=== PATIENT | female | born 2000 | race Caucasian/White ===

== ENCOUNTER 2019-10-17 16:44 | Emergency (ER) | payer OTHER, SELFPAY ==
[2019-10-17 17:28] LABS: Influenza Control Valid (Valid)
--- NOTE | 2019-10-17 17:34 | ED.URI ---
HPI - URI/Sore Throat General Chief Complaint: Upper Respiratory Infection Stated Complaint: cough, chest pain Time Seen by Provider: 10/17/19 17:00 Source: patient Mode of arrival: ambulatory Limitations: no limitations History of Present Illness HPI Narrative: Katty is a 19-year-old female patient she presents ambulatory to the emergency room. She states that she has been sick for the past 8-10 days. She has had a runny nose. She has a sore throat. She has a productive cough with yellowish white sputum. She has no history of fever. No abdominal pain. No chest pain. No nausea vomiting. She says she has a lot of sinus drainage. MD elicited complaint: cough, sore throat, rhinorrhea, nasal congestion, sinus pain and other ( Sinus drainage) Pertinent past history: other ( No significant past medical history) Onset (ago): day(s) ( 8 days) Consistency: intermittent Severity: moderate Exacerbating factors: nothing Relieving factors: nothing Context: other ( no recent travel) Associated symptoms: other ( denies fever. Denies chills. Has nasal congestion and rhinorrhea. Has sore throat.) Treatments prior to arrival: cold medicine and other Related Data Allergies Allergy/AdvReac Type Severity Reaction Status Date / Time acetaminophen Allergy Unknown Verified 07/06/19 12:12 Review of Systems Review of Systems: All systems reviewed & are unremarkable except as noted in HPI and below Constitutional: Constitutional: Reports as per HPI, Denies chills and Denies fever(s) Eyes: Eyes: Reports as per HPI and Denies change in vision ENT: Reports system reviewed and no additional complaints, except as documented, Reports as per HPI, Denies vertigo, Reports nasal congestion and Reports sore throat Cardiovascular: Cardiovascular: Reports as per HPI, Denies chest pain and Denies radiating jaw, neck or arm pain Respiratory: Respiratory: Reports as per HPI and Reports cough Comments: See HPI narrative Gastrointestinal: Gastrointestinal: Reports as per HPI, Denies abdominal pain, Denies nausea and Denies vomiting Genitourinary: Genitourinary: Reports as per HPI, Denies hematuria and Denies dysuria Musculoskeletal: Musculoskeletal: Reports no additional musculoskeletal complaints and Denies back pain Integumentary/Breasts: Skin/Breast: Reports system reviewed and no additional complaints, except as docu, Denies erythema and Denies rash Neurologic: Reports system reviewed and no additional complaints, except as documented, Denies vertigo, Denies dizziness, Denies syncope, Denies headache(s), Denies focal weakness and Denies numbness Psychiatric: Psychiatric: Reports no additional psychiatric complaints, Denies anxiety and Denies depression Endocrine: Endocrine: Reports no additional endocrine complaints, Denies polydipsia and Denies polyuria Hematologic/Lymphatic: Hematologic/Lymphatic: Reports no additional hematologic/lymphatic complaints, Denies easy bleeding and Denies easy bruising Allergic/Immunologic: Allergic/Immunologic: Reports no additional allergic/immunologic complaints, Denies lip swelling and Denies tongue swelling PMFSH Past Medical History Medical History (Updated 10/17/19 @ 18:34 by Eriberto Hudson MD) No pertinent past medical history Surgical History Surgical History (Updated 10/17/19 @ 17:41 by Eriberto Hudson MD) No pertinent past surgical history Family History Family History (Updated 10/17/19 @ 17:41 by Eriberto Hudson MD) Mother No problems noted. Father No problems noted. Social History Social History (Updated 10/17/19 @ 17:42 by Eriberto Hudson MD) Smoking status: Never smoker Alcohol intake: never Substance use: never Living arrangements: with family Exam Const: General: no acute distress ( mild distress) and alert Orientation/consciousness: patient oriented x3 Limitations: no limitations HENMT: Ears: TM's normal bilaterally and EAC's
[2019-10-17 17:36] VITALS: BP 131/77; PULSE 108; RESP 16; TEMP 37.2; O2SAT 97
[2019-10-17 18:42] VITALS: RESP 17
== END 2019-10-17 18:43 | disposition home or self-care (01) ==
PROVIDERS: Emergency Provider Surgery; PCP Internal Medicine
DX: J40 Bronchitis, not specified as acute or chronic (principal); J06.9 Acute upper respiratory infection, unspecified
CPT/HCPCS: 87081; 87804; 87880; 99283

== ENCOUNTER 2020-02-27 15:06 | Emergency (ER) | payer SELFPAY ==
[2020-02-27 15:21] VITALS: BP 115/75; PULSE 79; RESP 16; TEMP 36.8; O2SAT 99
--- NOTE | 2020-02-27 15:32 | ED.WOUNDLAC ---
HPI - Wound/Laceration General Chief Complaint: Wound/Laceration Stated Complaint: cut finger Source: patient Mode of arrival: ambulatory Limitations: no limitations History of Present Illness HPI narrative: this is a 20-year-old female that was at work and she was using a food slice her that caused a non gaping well-approximated laceration to her right index finger pad initially there was some bleeding currently no bleeding no numbness or tingling. Onset (ago): hour(s) Extremity Location: Right: hand ( Right index finger laceration) Place: work Context: accidental Associated symptoms: none Treatments prior to arrival: bandage Related Data Home Medications Medication Instructions Recorded Confirmed No Home Medications 02/27/20 02/27/20 Allergies Allergy/AdvReac Type Severity Reaction Status Date / Time acetaminophen Allergy Unknown Verified 07/06/19 12:12 Review of Systems Review of Systems: All systems reviewed & are unremarkable except as noted in HPI and below PMFSH Past Medical History Medical History No pertinent past medical history Surgical History Surgical History No pertinent past surgical history Family History Family History Mother No problems noted. Father No problems noted. Social History Social History Smoking status: Never smoker Alcohol intake: never Substance use: never Exam Const: General: no acute distress and alert Orientation/consciousness: patient oriented x3 HENMT: Head: normal to inspection Eyes: Conjunctivae: conjunctivae normal Pupils: Equal, round and reactive pupils present Neck: Neck: normal visual inspection and no lymphadenopathy Chest: Chest palpation & inspection: normal inspection of the chest Resp: Effort & Inspection: normal respiratory effort Auscultation: clear to auscultation bilaterally GI: GI Palp: Yes Soft to palpation Skin: Wounds: wounds noted ( 1cm laceration on the right index finger) Neuro: General: patient oriented x3, moves all extremities and no meningeal signs Extrem: General: normal to inspection Course Course Emergency Course: form patient that Dermabond would be appropriate for this laceration tolerated procedure well there was no blood loss and the patient was also informed that she needed her tetanus vaccine. Vital Signs Vital signs: Vital Signs Temperature 36.8 C 02/27/20 15:21 Pulse Rate 79 02/27/20 15:21 Respiratory Rate 16 02/27/20 15:21 Blood Pressure 115/75 02/27/20 15:21 Pulse Oximetry 99 02/27/20 15:21 Temperature 36.8 C 02/27/20 15:21 Pulse Rate 79 02/27/20 15:21 Respiratory Rate 16 02/27/20 15:21 Blood Pressure 115/75 02/27/20 15:21 Pulse Oximetry 99 02/27/20 15:21 Critical Care Time Critical Care Time Critical Care Time: No Discharge Plan Discharge Clinical Impression: Laceration Patient Disposition: Home, Self-Care Condition: Stable Instructions: Laceration (ED), Skin Adhesive Care (ED), Antibiotic Form Additional Instructions: Follow-up with primary care physician if symptoms persist or worsen. Prescriptions: No Action No Home Medications RF: 0 Follow-up/Referrals: Rod Arellano MD [Primary Care Provider] - Time of Disposition: 15:36
[2020-02-27] MEDS: TETANUS,DIPHTHERIA,AC PERTUSSIS ADULT 0.5 ML (ADACEL) IM (15:35)
== END 2020-02-27 15:43 | disposition home or self-care (01) ==
PROVIDERS: Emergency Provider Emergency Medicine; PCP Internal Medicine
DX: S61.210A Laceration without foreign body of right index finger without damage to nail, initial encounter (principal); W45.8XXA Other foreign body or object entering through skin, initial encounter
CPT/HCPCS: 12001; 90471; 90715; 99282

== ENCOUNTER 2021-04-23 14:45 | Outpatient (CLI) | payer OTHER, SELFPAY ==
[2021-04-23 18:17] LABS: SARS-CoV-2 RNA PCR Negative (Negative)
== END 2021-04-23 14:46 | disposition home or self-care (01) ==
PROVIDERS: PCP Internal Medicine; Visit Provider Internal Medicine
DX: Z20.822 Contact with and (suspected) exposure to COVID-19 (principal)
CPT/HCPCS: C9803; U0003; U0005

== ENCOUNTER 2021-09-23 10:47 | Emergency (ER) | payer OTHER, SELFPAY ==
[2021-09-23 11:04] VITALS: BP 124/88; PULSE 114; RESP 18; TEMP 36.6; O2SAT 100
--- NOTE | 2021-09-23 11:33 | ED.URI ---
HPI - URI/Sore Throat General Chief Complaint: Upper Respiratory Infection Stated Complaint: weak and dizzy/labored breathing Source: patient and RN notes reviewed Mode of arrival: ambulatory Limitations: no limitations History of Present Illness MD elicited complaint: fever, cough and sore throat Onset (ago): day(s) (3) Consistency: intermittent and progressively worsening Severity: moderate Exacerbating factors: nothing Relieving factors: nothing Associated symptoms: fever, chills, myalgias, headache, nasal congestion, sore throat, cough, nausea, vomiting and diarrhea Treatments prior to arrival: none Related Data Allergies Allergy/AdvReac Type Severity Reaction Status Date / Time acetaminophen Allergy Unknown Unknown Verified 09/23/21 11:11 Review of Systems Review of Systems: All systems reviewed & are unremarkable except as noted in HPI and below Cardiovascular: Cardiovascular: Denies chest pain Respiratory: Respiratory: Denies dyspnea PMFSH Past Medical History Medical History (Updated 09/23/21 @ 12:58 by Sin Darling MD) 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 Father No problems noted. Social History Social History Smoking status: Never smoker Alcohol intake: never Substance use: never Exam Const: General: no acute distress, alert and ill appearing acutely Nutritional Appearance: well nourished Orientation/consciousness: patient oriented x3 Other: female nurse in room during examination. HENMT: Head: normal to inspection Ears: external ears normal Eyes: Conjunctivae: conjunctivae normal Pupils: Equal, round and reactive pupils present EOM: EOMs intact bilaterally Neck: Neck: normal visual inspection Resp: Effort & Inspection: normal respiratory effort Auscultation: clear to auscultation bilaterally Cardio: Rate: regular rate Rhythm: regular rhythm GI: GI Palp: Yes Soft to palpation, No Tenderness to palpation present (GI), No Guarding due to palpation present (GI) and No Rebound tenderness present Auscultation: normal bowel sounds Back/Spine/Pelvis: Cervical Spine: cervical ROM normal Thoracic/Lumbar Spine: thoraco-lumbar ROM normal Skin: General skin exam: normal color Rashes: no rashes Neuro: General: patient oriented x3, moves all extremities, no meningeal signs, no focal motor deficits and CN's II-XI intact bilaterally Speech: normal speech Gait exam (Neuro): Normal gait present Extrem: General: normal to inspection and no clubbing, cyanosis or edema Psych: Appearance: grossly normal and well kempt Mental Status: mental status grossly normal Affect: normal affect Attitude: cooperative Thought content: Yes Normal thought content present Course Vital Signs Vital signs: Vital Signs Temperature 36.6 C 09/23/21 11:04 Pulse Rate 114 H 09/23/21 11:04 Respiratory Rate 18 09/23/21 11:04 Blood Pressure 124/88 09/23/21 11:04 Pulse Oximetry 100 09/23/21 11:04 Temperature 36.6 C 09/23/21 11:04 Pulse Rate 114 H 09/23/21 11:04 Respiratory Rate 18 09/23/21 11:04 Blood Pressure 124/88 09/23/21 11:04 Pulse Oximetry 100 09/23/21 11:04 MDM - URI/Sore Throat Lab Data Attestation: I reviewed the patient's lab results. Labs: Lab Results 09/23/21 Range/Units 11:15 Influenza A (RT-PCR) Negative (Negative) Influenza B (RT-PCR) Negative (Negative) SARS-CoV-2 RNA (RT-PCR) Positive A (Negative) Discharge Plan Discharge Clinical Impression: COVID-19 Patient Disposition: Home, Self-Care Condition: Stable Instructions: COVID-19 (Coronavirus Disease 2019) (ED) Additional Instructions: Use Ty
--- NOTE | 2021-09-23 11:43 | PC.NURSE ---
Assisted Dr. Darling with exam.
[2021-09-23 12:47] LABS: Influenza A QL RT-PCR Negative (Negative); Influenza B QL RT-PCR Negative (Negative); SARS-CoV-2 RNA PCR Positive (Negative)
[2021-09-23] MEDS: KETOROLAC (*BKC) 60 MG/2 ML VIAL IM (12:48)
[2021-09-23] MEDS: ONDANSETRON HCL ODT 4 MG TABLET PO (13:02)
== END 2021-09-23 13:08 | disposition home or self-care (01) ==
PROVIDERS: Emergency Provider Emergency Medicine; PCP Internal Medicine
DX: U07.1 COVID-19 (principal)
CPT/HCPCS: 87502; 96372; 99283; A9270; C9803; J1885; U0003; U0005

== ENCOUNTER 2023-06-30 09:38 | Emergency (ER) | payer OTHER, SELFPAY ==
--- NOTE | ~2023-06-30 | US_ITS ---
EXAMINATION: US OB <=14 wk fetus w TV DATE: 06/30/2023 11:54 INDICATION: Pelvic pain TECHNIQUE: Real-time pelvic ultrasound utilizing both a transvaginal and transabdominal probe was pe rformed. The interpreting radiologist was not present for the study. COMPARISON: None. FINDINGS: The uterus measures 8.3 x 4.0 x 5.6 cm. There is an intrauterine gestational sac with 1 mm yolk sac but without discernible pole. The mean sac diameter measures 6.5 mm, which correlates with an e stimated gestational age of 5 weeks and 3 days. No evident subchorionic hematoma. The right ovary measures 3.6 x 2.3 x 2.2 cm. The left ovary measures 3.6 x 1.5 x 1.5 cm. Vascular iveth w identified on color Doppler in both ovaries. In the right ovary this is seen at the periphery of a 1.8 cm hypoechoic likely corpus luteum cyst. A few tiny anechoic follicles are seen at the left ovary . There is no free fluid in the pelvis. IMPRESSION: 1. Single intrauterine gestational sac with yolk sac but no discernible pole likely due to bev y stage of .. 2. Gestational age by ultrasound based upon mean sac diameter of 5 weeks 3 day(s) +/- 3 day(s) with ultrasound estimated date of delivery (NABEEL) of 02/27/2024. Reviewed, dictated and finalized at location A. IMPRESSION: 1. Single intrauterine gestational sac with yolk sac but no discernible p ole likely due to early stage of .. 2. Gestational age by ultrasound based upon mean sac diameter of 5 weeks 3 day (s) +/- 3 day(s) with ultrasound estimated date of delivery (NABEEL) of 02/27/2024.
[2023-06-30 09:50] VITALS: BP 125/72; PULSE 86; RESP 16; TEMP 36.3; O2SAT 100
[2023-06-30] MEDS: SODIUM CHLORIDE 0.9% IV 1,000 ML 999 ML IV CONT (10:21)
[2023-06-30 10:22] LABS: Appearance Urine Clear (Clear); Bilirubin Urine Negative (Negative); Blood Urine Negative (Negative); Color Urine Yellow (Yellow); Glucose Urine UA Negative (Negative); Ketones Urine Negative (Negative); Leukocyte Esterase Ur Negative LEU/UL (Negative); Nitrate Urine Negative (Negative); Protein Urine Negative (Negative); Specific Grav Ur 1.009 (1.001-1.035); Urobilinogen Urine 0.2 mg/dL (<2.0); pH Urine 7.5 (5.0-9.0)
[2023-06-30 10:29] LABS: Add Urine Microscopic? NO
[2023-06-30 10:34] LABS: Basophils Absolute Auto 0.1 K/mm3 (0.0-0.1); Basophils Percent Auto 0.8 % (0.2-1.2); Eosinophils Absolute Auto 0.1 K/mm3 (0-0.3); Eosinophils Percent Auto 1.5 % (0-4.4); Hematocrit 39.3 % (37.0-47.0); Hemoglobin 13.1 g/dL (12.0-15.0); Immature Granulocyte Absolute 0.02 K/mm3 (0.00-0.031); Immature Granulocyte Percent A 0.3 % (0-0.5); Lymphocytes Absolute Auto 1.19 K/mm3 (0.9-3.2); Lymphocytes Percent Auto 19.9 % (18.3-44.2); Mean Corpuscular HGB Conc 33.3 g/dl (32-36); Mean Corpuscular Hemoglobin 30.9 pg (26-34); Mean Corpuscular Volume 92.7 fl (80-100); Mean Platelet Volume 11.5 fl (7.4-10.4); Monocytes Absolute Auto 0.4 K/mm3 (0.1-0.6); Monocytes Percent Auto 5.8 % (2.6-8.5); Neutrophils Absolute Auto 4.3 K/mm3 (1.3-6.7); Neutrophils Percent Auto 71.7 % (45.5-73.1); Platelet Count Result 168 k/mm3 (150-375); Red Blood Count 4.24 M/mm3 (4.2-5.4); Red Cell Distribution Width 11.8 % (11.5-14.5)
[2023-06-30 10:45] LABS: Alanine Aminotransferase 15 U/L (6-35); Albumin Level 4.2 g/dL (3.5-5.1); Alkaline Phosphatase 64 U/L (38-126); Anion Gap 8 mmol/L (8-16); Aspartate Amino Transferase 24 U/L (14-36); Bilirubin,Total 1.5 mg/dL (0.2-1.3); Blood Urea Nitrogen 11 mg/dL (7-17); Calcium 8.8 mg/dL (8.4-10.2); Carbon Dioxide 25 mmol/L (22-30); Chloride 106 mmol/L (98-107); Estimated CRCL calculation 141 ml/min; Estimated Glomerular Filt Rate > 60; Glucose 83 mg/dL (65-110); Potassium 3.8 mmol/L (3.4-5.0); Sodium 139 mmol/L (137-145)
--- NOTE | 2023-06-30 10:58 | ED.GENADULT ---
HPI - General Adult General Chief complaint: Syncope Stated complaint: syncope Time Seen by Provider: 06/30/23 09:53 History of Present Illness HPI narrative: Patient is a 23-year-old female who presents to the ER with reports of and syncope. She has been feeling more fatigued recently and has had syncope x3. She will get lightheaded when she stands up but improves if she sits down. She reports she is a vegetarian. After missing her menstrual cycle she took 5 test and they were all positive. She has some cramping in her lower abdomen. No adnexal pain. No vaginal bleeding or vaginal discharge. No urinary frequency urgency or dysuria. Related Data Allergies Allergy/AdvReac Type Severity Reaction Status Date / Time acetaminophen Allergy Unknown Unknown Verified 09/23/21 11:11 Review of Systems Review of Systems: All systems reviewed & are unremarkable except as noted in HPI and below Constitutional: Constitutional: Denies chills, Denies fatigue and Denies fever(s) ENT: Denies nasal congestion and Denies sore throat Respiratory: Respiratory: Denies cough, Denies dyspnea and Denies wheezing Gastrointestinal: Gastrointestinal: Denies abdominal pain, Denies nausea and Denies vomiting Genitourinary: Genitourinary: Denies abnormal vaginal bleeding, Denies nocturia, Denies dysuria, Denies pelvic pain and Denies vaginal discharge Neurologic: Reports syncope, Denies headache(s), Denies focal weakness and Denies numbness PMFSH Past Medical History Medical History (Updated 06/30/23 @ 13:09 by Tomas Quinn MD) 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 Father No problems noted. Social History Social History Smoking status: Never smoker Alcohol intake: never Substance use: never Living arrangements: with family Exam Narrative: GENERAL: Well-appearing, well-nourished, and in no acute distress. HEAD: Normocephalic, atraumatic. ENT: Mucous membranes moist. CHEST: Clear to auscultation. No respiratory distress. HEART: Regular rate and rhythm. Normal peripheral pulses. ABDOMEN: Soft, nontender, nondistended. EXTREMITIES: Normal range of motion. No edema. SKIN: Warm, dry, no rash. NEURO: Alert and oriented x3. PSYCH: Normal mood and affect. Course Course Emergency Course: Patient resting comfortably. Informed of imaging and lab results. Patient with early . Recommend follow-up with an OB which she does not have so we will give her the name of the on-call physician. Vital Signs Vital signs: Vital Signs Temperature 97.4 F L 06/30/23 09:50 Pulse Rate 86 06/30/23 09:50 Respiratory Rate 16 06/30/23 09:50 Blood Pressure 125/72 06/30/23 09:50 Pulse Oximetry 100 06/30/23 09:50 Temperature 97.4 F L 06/30/23 09:50 Pulse Rate 86 06/30/23 09:50 Respiratory Rate 16 06/30/23 09:50 Blood Pressure 125/72 06/30/23 09:50 Pulse Oximetry 100 06/30/23 09:50 Medical Decision Making Vital Signs Vital Signs: Vital Signs Temperature 97.4 F L 06/30/23 09:50 Pulse Rate 86 06/30/23 09:50 Respiratory Rate 16 06/30/23 09:50 Blood Pressure 125/72 06/30/23 09:50 Pulse Oximetry 100 06/30/23 09:50 Temperature 97.4 F L 06/30/23 09:50 Pulse Rate 86 06/30/23 09:50 Respiratory Rate 16 06/30/23 09:50 Blood Pressure 125/72 06/30/23 09:50 Pulse Oximetry 100 06/30/23 09:50 Lab Data 06/30/23 10:23 06/30/23 10:23 Labs: Lab Results 06/30/23 06/30/23 Range/Units 10:16 10:23 WBC 6.0 (4.5-10.0) K/mm3 RBC 4.24 (4.2-5.4) M/mm3 Hgb 13.1 (12.0-15.0) g/dL Hc
--- NOTE | 2023-06-30 11:16 | PC.NURSE ---
PT TAKEN TO ULTRASOUND VIA W/C
[2023-06-30 13:21] VITALS: BP 110/63; PULSE 67; RESP 16; O2SAT 100
== END 2023-06-30 13:23 | disposition home or self-care (01) ==
PROVIDERS: Emergency Provider Emergency Medicine; PCP Internal Medicine
DX: O26.891 Other specified pregnancy related conditions, first trimester (principal); O99.891 Other specified diseases and conditions complicating pregnancy; R55 Syncope and collapse; Q79.60 Ehlers-Danlos syndrome, unspecified; Z3A.01 Less than 8 weeks gestation of pregnancy
CPT/HCPCS: 36415; 76801; 76817; 80053; 81003; 81025; 84702; 85025; 96360; 99284; J7030

== ENCOUNTER 2023-08-21 15:55 | Outpatient (CLI) | payer OTHER, SELFPAY ==
[2023-08-21 16:29] LABS: Hematocrit 37.7 % (37.0-47.0); Mean Corpuscular HGB Conc 34.5 g/dl (32-36); Mean Corpuscular Volume 89.8 fl (80-100); Platelet Count Result 166 k/mm3 (150-375); Red Cell Distribution Width 11.9 % (11.5-14.5); White Blood Count 6.1 K/mm3 (4.5-10.0)
[2023-08-21 16:43] LABS: Appearance Urine Cloudy (Clear); Bacteria Urine 1+ /hpf; Bilirubin Urine Negative (Negative); Blood Urine Negative (Negative); Color Urine Yellow (Yellow); Glucose Urine UA Negative (Negative); Ketones Urine Negative (Negative); Leukocyte Esterase Ur Trace LEU/UL (NEGATIVE); Nitrate Urine Negative (Negative); Non Pathogenic Casts 0-2; Protein Urine Negative (Negative); Specific Grav Ur 1.015 (1.001-1.035); Squamous Epithelial Cell Urine Many /hpf (Few); Urobilinogen Urine 0.2 mg/dL (<2.0); pH Urine 6.5 (5.0-9.0)
[2023-08-21 17:15] LABS: Add Urine Microscopic? YES
[2023-08-21 17:15] LABS: HIV 1/2 Ab P24 Ag Result Negative (Negative)
[2023-08-21 17:30] LABS: Hepatitis B Surface Antigen Negative (Negative); Rubella IgG Antibody 35.1 IU/ML
[2023-08-21 17:44] LABS: Hepatitis C Virus Antibody Negative (Negative)
[2023-08-25 14:30] LABS: Rapid Plasma Reagin Non-Reactive (NonReactive)
[2023-08-26 20:15] LABS: Hematocrit 39.3 % (35.0-45.0); Hemoglobin 13.2 g/dL (11.7-15.5); MCH 31.4 pg (27.0-33.0); MCV 93.3 fL (80.0-100.0); RDW 11.9 % (11.0-15.0); Red Blood Cell Count 4.21 Mill/uL (3.80-5.10)
== END 2023-08-21 15:56 | disposition home or self-care (01) ==
LOC: ANHLAB 15:57
PROVIDERS: PCP Nurse Practitioner Family; Visit Provider Obstetrics & Gynecology
DX: Z34.90 Encounter for supervision of normal pregnancy, unspecified, unspecified trimester (principal); Z3A.00 Weeks of gestation of pregnancy not specified
CPT/HCPCS: 36415; 81001; 83021; 84443; 85027; 86592; 86703; 86762; 86787; 86803; 86850; 86900; 86901; 87086; 87088; 87340; G0432

== ENCOUNTER 2023-10-12 13:10 | Outpatient (CLI) | payer OTHER, SELFPAY ==
[2023-10-12 13:25] VITALS: BP 114/72; PULSE 70
[2023-10-12 13:30] VITALS: BP 110/73; PULSE 72
[2023-10-12 13:46] VITALS: BP 106/68; PULSE 75
--- NOTE | 2023-10-12 13:58 | PC.NURSE ---
Dr De La O notified of adm c/o of swelling in R hand, no pitting edema noted in lower legs, reflexes normal, BP's, BROCK and visual issues. Encourage patient to wear compression stockings, encourage Po fluids and address hand swelling and tightness at next office visit. No labs ordered at this time.
[2023-10-12 14:00] VITALS: BP 111/69; PULSE 67
== END 2023-10-12 14:03 | disposition home or self-care (01) ==
LOC: ANHOBOP 13:16 → ANHOBPP 13:19
PROVIDERS: PCP Nurse Practitioner Family; Visit Provider Obstetrics & Gynecology
DX: O13.9 Gestational [pregnancy-induced] hypertension without significant proteinuria, unspecified trimester (principal)
CPT/HCPCS: 99199

== ENCOUNTER 2023-12-02 10:37 | Outpatient (RCR) | payer OTHER, SELFPAY ==
[2023-12-02 12:50] LABS: Glucose 1 Hour PP 50gm Dose 92 mg/dL
[2023-12-02 12:54] LABS: Basophils Percent Auto 0.4 % (0.2-1.2); Eosinophils Absolute Auto 0.1 K/mm3 (0-0.3); Eosinophils Percent Auto 1.5 % (0-4.4); Hematocrit 33.8 % (37.0-47.0); Hemoglobin 11.2 g/dL (12.0-15.0); Immature Granulocyte Absolute 0.07 K/mm3 (0.00-0.031); Immature Granulocyte Percent A 0.8 % (0-0.5); Lymphocytes Absolute Auto 1.71 K/mm3 (0.9-3.2); Lymphocytes Percent Auto 19.2 % (18.3-44.2); Mean Corpuscular HGB Conc 33.1 g/dl (32-36); Mean Corpuscular Hemoglobin 30.8 pg (26-34); Mean Corpuscular Volume 92.9 fl (80-100); Mean Platelet Volume 11.2 fl (7.4-10.4); Monocytes Absolute Auto 0.5 K/mm3 (0.1-0.6); Monocytes Percent Auto 5.9 % (2.6-8.5); Neutrophils Absolute Auto 6.4 K/mm3 (1.3-6.7); Neutrophils Percent Auto 72.2 % (45.5-73.1); Platelet Count Result 165 k/mm3 (150-375); Red Blood Count 3.64 M/mm3 (4.2-5.4); Red Cell Distribution Width 12.5 % (11.5-14.5); White Blood Count 8.9 K/mm3 (4.5-10.0)
--- NOTE | 2023-12-03 14:29 | PC.NURSE ---
Dr. Tan informed of pt's arrival with c/o increased vaginal wetness and possible leaking a couple of times today. ROM plus was negative. Irregular contractions were noted on monitor; no change from what she has been feeling. SVE- internal os is closed. OK to discharge to home.
[2023-12-03] MEDS: RHO(D) IMMUNE GLOBULIN 300 MCG/2 ML SYRINGE IM (17:33)
== END 2024-03-01 23:59 | disposition home or self-care (01) ==
LOC: ANHLAB 10:37
PROVIDERS: PCP Nurse Practitioner Family; Visit Provider Nurse Practitioner Family
DX: Z29.13 Encounter for prophylactic Rho(D) immune globulin (principal); O36.0190 Maternal care for anti-D [Rh] antibodies, unspecified trimester, not applicable or unspecified; Z3A.00 Weeks of gestation of pregnancy not specified
CPT/HCPCS: 36415; 82947; 85025; 85461; 86850; 86900; 86901; 90384; 96372; J2790

== ENCOUNTER 2024-01-22 09:43 | Outpatient (CLI) | payer OTHER, SELFPAY ==
[2024-01-22 10:02] LABS: Hematocrit 34.3 % (37.0-47.0); Hemoglobin 11.3 g/dL (12.0-15.0); Mean Corpuscular HGB Conc 32.9 g/dl (32-36); Mean Corpuscular Hemoglobin 29.8 pg (26-34); Mean Corpuscular Volume 90.5 fl (80-100); Mean Platelet Volume 10.9 fl (7.4-10.4); Platelet Count Result 167 k/mm3 (150-375); Red Blood Count 3.79 M/mm3 (4.2-5.4); Red Cell Distribution Width 13.2 % (11.5-14.5); White Blood Count 9.2 K/mm3 (4.5-10.0)
[2024-01-22 10:57] LABS: HIV 1/2 Ab P24 Ag Result Negative (Negative)
[2024-01-22 11:20] LABS: Rapid Plasma Reagin Non-Reactive (NonReactive)
== END 2024-01-22 09:44 | disposition home or self-care (01) ==
LOC: ANHLAB 09:44
PROVIDERS: PCP Nurse Practitioner Family; Visit Provider Obstetrics & Gynecology
DX: Z34.90 Encounter for supervision of normal pregnancy, unspecified, unspecified trimester (principal)
CPT/HCPCS: 36415; 85027; 86592; 86703; G0432

== ENCOUNTER 2024-01-30 18:28 | Observation (INO) | payer OTHER, SELFPAY ==
[2024-01-30] VITALS (9 sets, daily range): BP systolic 113–126; BP diastolic 72–81; PULSE 77–89; BMI 34.2
--- NOTE | 2024-01-30 20:42 | OBADM ---
This patient, Katty Merlos, admitted to the OB room [facility] for observation. Patient/family oriented to hospital policies and general routines including ID bracelet, bed and alarms, visiting hours, pain management, procedures, bathroom and other care routines, personal items, smoking policy, room service/diet, and visiting hours. Patient/Family are encouraged to report perceived risks to care and to ask questions if they do not understand what they are told or what they should do.
--- NOTE | 2024-02-10 17:25 | PM.OBTRLD ---
OB - Triage/Final Diagnosis Visit Information Comments/Additional reasons for admission: I have assessed the risk for this patient, Katty Merlos, and determined that she would benefit from observation care. Final Diagnosis (1) Cramping complicating , antepartum: Code(s): O26.899 - Other specified related conditions, unspecified trimester; R10.9 - Unspecified abdominal pain Status: Acute
== END 2024-01-30 20:49 | disposition home or self-care (01) ==
PROVIDERS: Admitting Provider Obstetrics & Gynecology; PCP Nurse Practitioner Family; Visit Provider Obstetrics & Gynecology
DX: O26.893 Other specified pregnancy related conditions, third trimester (principal); R10.9 Unspecified abdominal pain; Z3A.36 36 weeks gestation of pregnancy
CPT/HCPCS: G0378; G0379

== ENCOUNTER 2024-02-18 13:44 | Outpatient (RCR) | payer OTHER, SELFPAY ==
--- NOTE | ~2024-02-18 | US_ITS ---
EXAMINATION: US OB limited w BPP DATE: 02/18/2024 15:27 INDICATION: Cholestasis. Third trimester. TECHNIQUE: Real-time pelvic ultrasound was performed. COMPARISON: Ultrasound 06/30/2023 FINDINGS: There is a single living fetus in vertex presentation. The placenta is anterior. heart rate is 124 beats per minute (bpm). The amniotic fluid index is 9.2 cm, which is normal. Biophysical profile performed by the technologist: breathing (30 sec sustained breathing in 30 minutes): 2 out of 2 movement (3 gross body movements in 30 minutes): 2 out of 2 tone (one episode of wookwfe-[id number]-zpeszwx limb movement): 2 out of 2 Amniotic fluid pocket (2 cm): 2 out of 2 Total score: 8 out of 8 IMPRESSION: 1. Single living fetus in vertex presentation. 2. Biophysical profile 8 out of 8. Reviewed, dictated and finalized at location A.
[2024-02-18 14:33] LABS: Alanine Aminotransferase 6 U/L (6-35); Albumin Level 3.8 g/dL (3.5-5.1); Alkaline Phosphatase 158 U/L (38-126); Anion Gap 9 mmol/L (4-12); Aspartate Amino Transferase 14 U/L (14-36); Bilirubin,Total 0.8 mg/dL (0.2-1.3); Blood Urea Nitrogen 7 mg/dL (7-17); Calcium 9.1 mg/dL (8.4-10.2); Carbon Dioxide 18 mmol/L (22-30); Chloride 108 mmol/L (98-107); Estimated Glomerular Filt Rate > 60; Glucose 85 mg/dL (65-110); Sodium 135 mmol/L (137-145)
[2024-02-18 15:39] VITALS: BP 129/68; PULSE 93
[2024-02-25 16:33] LABS: Chenodeoxycholic Acid <0.5 umol/L (< OR = 3.9); Cholic Acid <0.5 umol/L (< OR = 2.8); Deoxycholic Acid <0.5 umol/L (< OR = 2.3); Total Bile Acids <1.5 umol/L (< OR = 8.3)
== END 2024-02-29 08:21 | disposition home or self-care (01) ==
LOC: ANHOBOP 13:44
PROVIDERS: PCP Nurse Practitioner Family; Visit Provider Obstetrics & Gynecology
DX: O26.643 Intrahepatic cholestasis of pregnancy, third trimester (principal); Z3A.38 38 weeks gestation of pregnancy
CPT/HCPCS: 36415; 59025; 76815; 76819; 80053; 82542

== ENCOUNTER 2024-02-24 21:33 | Inpatient (IN) | payer OTHER, SELFPAY ==
[2024-02-24 22:15] VITALS: BMI 34.5
[2024-02-24 22:34] LABS: Basophils Percent Auto 0.3 % (0.2-1.2); Eosinophils Absolute Auto 0.2 K/mm3 (0-0.3); Eosinophils Percent Auto 1.3 % (0-4.4); Hematocrit 34.7 % (37.0-47.0); Hemoglobin 11.6 g/dL (12.0-15.0); Immature Granulocyte Absolute 0.11 K/mm3 (0.00-0.031); Immature Granulocyte Percent A 0.9 % (0-0.5); Lymphocytes Absolute Auto 2.01 K/mm3 (0.9-3.2); Lymphocytes Percent Auto 16.4 % (18.3-44.2); Mean Corpuscular HGB Conc 33.4 g/dl (32-36); Mean Corpuscular Hemoglobin 28.6 pg (26-34); Mean Corpuscular Volume 85.7 fl (80-100); Mean Platelet Volume 11.4 fl (7.4-10.4); Monocytes Absolute Auto 0.7 K/mm3 (0.1-0.6); Monocytes Percent Auto 5.6 % (2.6-8.5); Neutrophils Absolute Auto 9.2 K/mm3 (1.3-6.7); Neutrophils Percent Auto 75.5 % (45.5-73.1); Platelet Count Result 190 k/mm3 (150-375); Red Blood Count 4.05 M/mm3 (4.2-5.4); Red Cell Distribution Width 13.8 % (11.5-14.5); White Blood Count 12.2 K/mm3 (4.5-10.0)
[2024-02-24] MEDS: miSOPROStol 25 MCG TABLET 50 MCG VAGINAL (22:51)
[2024-02-24 23:25] LABS: HIV 1/2 Ab P24 Ag Result Negative (Negative)
[2024-02-25] VITALS (155 sets, daily range): BP systolic 84–151; BP diastolic 49–110; PULSE 76–129; RESP 16–18; TEMP 36.3–37; O2SAT 95–100
[2024-02-25] MEDS: miSOPROStol 25 MCG TABLET 50 MCG VAGINAL ×2 (02:37→06:40)
--- NOTE | 2024-02-25 12:52 | PM.IMHP ---
H&P: HPI History of Present Illness Date/Time: 02/25/24 12:52 Chief Complaint: Induction of labor Narrative: patient is a 24-year-old primigravida at 39 weeks with an EDC of 02/27/2024 admitted for medical induction of labor. course in significant for history of bipolar disorder she has not had any symptoms with the . She is unmedicated. She has been offered counseling. She declines medication. She also has a history of possible Samreen Danlos this has not been confirmed. She has been informed of risks benefits of medical induction of labor versus spontaneous labor and has opted for induction of labor. Labs reviewed. GBS negative. she did have episode of pruritus without rash and the bile acid are pending. Normal liver function tests. Review of Systems Review of Systems: All systems reviewed & are unremarkable except as noted in HPI and below Constitutional: Constitutional: Reports no additional constitutional complaints and Denies headache(s) Eyes: Eyes: Denies spots in vision ENT: Reports system reviewed and no additional complaints, except as documented and Denies headache(s) Cardiovascular: Cardiovascular: Denies chest pain and Denies dyspnea Respiratory: Respiratory: Denies dyspnea Gastrointestinal: Gastrointestinal: Reports no additional gastrointestinal complaints Genitourinary: Genitourinary: Reports amenorrhea Musculoskeletal: Musculoskeletal: Reports no additional musculoskeletal complaints Integumentary/Breasts: Skin/Breast: Denies breast mass and Denies rash Neurologic: Denies headache(s) Psychiatric: Psychiatric: Reports no additional psychiatric complaints [facility] Past Medical History Medical History No pertinent past medical history Surgical History Surgical History [place] teeth removed Family History Family History Mother No problems noted. Father No problems noted. Other Alcoholism Depression Diabetes mellitus Heart disease History of cancer Hypertension Thyroid disorder Social History Social History Smoking status: Former smoker Alcohol intake: never Substance use: never Do You Feel Safe in your Home?: Yes Lack of Transportation: No Lack of Food: Sometimes True Current Housing: I Have Housing Concerned About Future Housing: No Difficulty Paying Gas/Electric Bills: No Difficulty Paying for Meds: No Currently Unemployed: No Education: High School Diploma/GED Difficulty w/ Childcare or Family Care: No Living arrangements: with family Spiritual care concerns: No Meds Home Medications and Allergies Home Medications Medication Instructions Recorded Confirmed Type vitamin with calcium 1 tablet PO DAILY #30 tabs 06/30/23 02/24/24 Rx no.72-iron 27 mg-folic acid 1 mg tablet ( Vitamins Plus Low Iron) Allergies Allergy/AdvReac Type Severity Reaction Status Date / Time acetaminophen Allergy Intermediate Hives Verified 02/24/24 22:19 Latex, Natural Rubber Allergy Mild Rash Verified 02/24/24 22:19 Vital Signs Vital Signs - 24 hr 02/25/24 00:08 02/25/24 01:01 02/25/24 02:01 Temperature Pulse Rate 103 H 89 88 Respiratory Rate Blood Pressure 116/80 120/84 143/97 H Oxygen Delivery 02/25/24 02:04 02/25/24 03:01 02/25/24 04:01 Temperature Pulse Rate 85 78 85 Respiratory Rate Blood Pressure 135/86 129/80 126/85 Oxygen Delivery 02/25/24 05:01 02/25/24 06:25 02/25/24 06:40 Temperature 97.8 F Pulse Rate 89 83 Respiratory Rate 18 Blood Pressure 131/84 126/86 Oxygen Delivery 02/25/24 07:00 02/25/24 08:00 02/25/24 08:06 Temperature 97.7 F Pulse Rate 87 85 88 Respiratory Rate 18 Blood Pressure 119/87 136
--- NOTE | 2024-02-25 12:59 | WPDHPUPDATE1 ---
History and Physical Update Update Date/Time: 02/25/24 12:59 History and Physical has been reviewed, including an updated exam of the patient. There are NO changes in the patient's condition. Risks, benefits, and alternatives have been discussed and questions answered. Patient agrees to proceed with procedure.
--- NOTE | 2024-02-25 12:59 | PM.OBPNLAB ---
Pain Control Date/time seen: 02/25/24 12:59 Cat 1, fht 130, irregular ctx, cervix /-3/posterior.
--- NOTE | 2024-02-25 13:00 | PM.OBPNLAB ---
Pain Control Date/time seen: 02/25/24 13:00 Comments: fht 130, ctx q 2-3, AROM clear, cervix 1.5/60/-2. Will observe. BP elevated. She does not have PIH symptoms. Will check labs.
[2024-02-25] MEDS: LACTATED RINGERS 1,000 ML 125 ML IV CONT ×3 (13:04→18:59)
[2024-02-25 13:15] LABS: Rapid Plasma Reagin Non-Reactive (NonReactive)
[2024-02-25 13:20] LABS: Alanine Aminotransferase 6 U/L (6-35); Albumin Level 3.7 g/dL (3.5-5.1); Alkaline Phosphatase 169 U/L (38-126); Anion Gap 8 mmol/L (4-12); Aspartate Amino Transferase 18 U/L (14-36); Bilirubin,Total 0.7 mg/dL (0.2-1.3); Blood Urea Nitrogen 8 mg/dL (7-17); Carbon Dioxide 18 mmol/L (22-30); Chloride 110 mmol/L (98-107); Estimated CRCL calculation 212 ml/min; Estimated Glomerular Filt Rate > 60; Glucose 98 mg/dL (65-110); Potassium 4.2 mmol/L (3.4-5.0); Sodium 136 mmol/L (137-145); Uric Acid 4.4 mg/dL (2.5-7.5)
[2024-02-25] MEDS: OXYTOCIN 30 UNITS/NS 500 ML 30 UNITS/500 ML BAG 6 UNITS IV CONT (18:58)
--- NOTE | 2024-02-25 23:12 | PM.OBPRVD ---
OB - Vaginal Delivery Note Procedure Delivery date: 02/25/24 Induction method: Per Misoprostol Protocol Delivery augmentation: Rupture of Membranes and Pitocin Delivery monitor: External FHT and Internal FHT Route of delivery: Episiotomy description: None Laceration Description: Vaginal (sulcus inferior, sup labial minora hemostasis obtained with suture and packing at introitus) Delivery repair: vicryl (3.0 vicryl) Specimen: No Quantitative Blood Loss (ml): 300 Anesthesia type: Local Disposition: Floor Complications: No immediate complications Narrative: She was admitted for MIL. She had three doses of cytotec. She had irregular contractions. She had AROM clear fluid. She continued to contract. Labor was augmented with Pitocin. She dilated to complete and delivered a female infant. vigorously crying and placed on maternal abdomen, delayed cord clamping for one minute. Baby Date of : 02/25/24 Time of : 22:39 Weeks of gestation at delivery: 39 Infant gender: Female Weight (pounds): 9 Weight (ounces): 9 presentation: vertex position: Right Occiput Anterior Placenta delivery description: Spontaneous Cord Vessel Description: 3 Vessels, Clamped/Cut, Delayed Cord Clamping and Around Extremity (leg) score one minute: 9 score five minutes: 9
[2024-02-25] MEDS: OXYTOCIN 30 UNITS/NS 500 ML 30 UNITS/500 ML BAG 125 UNITS IV CONT (23:22)
[2024-02-25] MEDS: LIDOCAINE HCL 1% LOCAL INJ 20 ML VIAL (23:49)
[2024-02-26] VITALS (9 sets, daily range): BP systolic 116–143; BP diastolic 71–82; PULSE 84–107; RESP 16–18; TEMP 36.1–37.3; O2SAT 96–99
[2024-02-26] MEDS: WITCH HAZEL 40 PADS 1 PAD TOPICAL (00:29)
[2024-02-26] MEDS: IBUPROFEN 600 MG TABLET PO ×4 (00:29→23:51)
[2024-02-26] MEDS: BENZOCAINE 20% AER SPR (*SP) 56 GM CAN 1 SPRAY TOPICAL (00:29)
[2024-02-26] MEDS: LANOLIN (LANSINOH) 7.5 GM CREAM 1 APPLIC TOPICAL (00:30)
--- NOTE | 2024-02-26 01:38 | OBPPTRN ---
Patient transferred to post room #280 via wheelchair. Support person present. Oriented to unit, room, information board, rooming in, admission packet and security measures. Patient verbalizes understanding.
[2024-02-26 06:21] LABS: Hematocrit 30.5 % (37.0-47.0); Hemoglobin 10.2 g/dL (12.0-15.0)
--- NOTE | 2024-02-26 07:14 | PM.OBPNVD ---
OB - PN: Subj Subjective Date/time seen: 02/26/24 07:14 Patient comments: pain well controlled, tolerating diet and other (Decreasing lochia.) [place] baby status: doing well and nursing well [place] feeding status: exclusively breast feeding OB - PN: Obj Data Labs 02/26/24 05:17 02/24/24 22:11 Labs: Laboratory Results - last 24 hr 02/24/24 02/26/24 02/26/24 22:11 05:17 05:23 Hgb 10.2 L Hct 30.5 L Sodium 136 L Potassium 4.2 Chloride 110 H Carbon Dioxide 18 L Anion Gap 8 BUN 8 Creatinine 0.40 L Estim Creat Clear Calc 212 Estimated GFR > 60 Glucose 98 Uric Acid 4.4 Calcium 9.0 Total Bilirubin 0.7 AST 18 ALT 6 Alkaline Phosphatase 169 H Total Protein 7.0 Albumin 3.7 RPR Non-reactive Blood Type O Negative Antibody Screen Negative OB - PN A/P Plan day: 1 Plan: routine care Comments: Patient doing well. Time Spent With Patient Time: Total time spent is greater than 50% in coordination of care (as documented) at patient's floor/unit and/or counseling patient: Exam Psych: Affect: normal affect Other: Abd: fundus firm below umbilicus, nontender Perineum: healing, mild bruising, mild swelling, packing removed, no active bleeding Ext: nontender
[2024-02-26] MEDS: DOCUSATE SODIUM 100 MG CAPSULE PO (08:49)
[2024-02-26] MEDS: MULTIVIT/MIN/PREN/FOL AC/IRON TABLET 1 TAB PO (08:49)
--- NOTE | 2024-02-26 11:33 | PC.NURSE ---
[id number]. Mother verbalizes she is able to independently latch infant with appropriate positioning and alignment. She verbalized that she has formed a small blister on the L nipple, and is responsively . RN explained that mom can use lanolin and also breastmilk (left EFRAIN to dry) to aid in the healing of the blister. Mother also educated on signs of a correct latch, and to call RN during her next feeding to ensure the infant is latching appropriately. Mother given a nipple shield and educated on the use of the nipple shield as a way to give the blistered nipple a break and the ability to heal. Mother verbalized understanding. Infant is currently meeting outcomes for weight, output, jaundice, blood sugar and feeding frequencies of 8-12 times in 24 hours. Mother declines any additional assistance or education at this time. Mother is encouraged to call for assistance if her infant doesn?t latch, pain with latching, questions or concerns. Mother voiced understanding of information shared along with the mom/baby guide for an additional resource. Reported to the Primary RN.
--- NOTE | 2024-02-26 12:18 | WPDANLDPN2 ---
Anes-Prog Note L&D Date/Time: 02/26/24 12:18 Comfortable throughout: labor and delivery Neuraxial method: epidural Epidural/Spinal procedure site: clean & non-tender Neuro status: Neuro function grossly intact. Cardiovascular status: normal Respiratory status: normal Airway patency: baseline Mental status: baseline Post-Op hydration status: normal Vital Signs: Last Vital Signs Temp 36.1 C L 02/26/24 07:50 Pulse 103 H 02/26/24 07:50 Resp 16 02/26/24 07:50 BP 124/82 02/26/24 07:50 Pulse Ox 99 02/26/24 07:50 O2 Del Method Room Air 02/24/24 22:15 Pain score (VAS): 2/10 I/O: Intake & Output 02/25/24 02/26/24 02/26/24 23:59 07:59 15:59 Intake Total 1202.1 240 Output Total 300 Balance 902.1 240 Post-procedural complaints: none Patient feedback: Patient satisfied with anesthetic care.
--- NOTE | 2024-02-26 15:04 | PCCCNOTE ---
Recvd referral in regards to history of suicide attempt in 2019, no counseling, and not on any Bipolar meds any more. Provided resources for counseling and psych. Pt. reports many friends and family members of support and states she and baby will be living with pt's mother Deidre (at bedside), and pt's father. Pt. reports MAR Phelps will be involved, and he is at bedside also. Pt. reports has all baby supplies and already established with WIC and [facility] [place]. Pt. denies any DCFS involvement and denies drug use during . resources provided. NITO braun.
[2024-02-26] MEDS: RHO(D) IMMUNE GLOBULIN 300 MCG/2 ML SYRINGE IM (17:44)
[2024-02-27 09:01] VITALS: BP 124/81; PULSE 91; RESP 18; TEMP 36.7; O2SAT 97
[2024-02-27] MEDS: IBUPROFEN 600 MG TABLET PO (09:01)
[2024-02-27] MEDS: MULTIVIT/MIN/PREN/FOL AC/IRON TABLET 1 TAB PO (09:01)
[2024-02-27] MEDS: DOCUSATE SODIUM 100 MG CAPSULE PO (09:02)
--- NOTE | 2024-02-27 10:17 | P.PNOB_ITS ---
OB - PN: Subj Subjective Date/time seen: 02/27/24 07:12 Narrative: PPD#2 Katty reports doing well today. 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 Her pain is controlled. She is tolerating regular diet, voiding, passing gas, and ambulating without issues. She is breast feeding. OB - PN: Obj Data Labs 02/26/24 05:17 02/24/24 22:11 Labs: Laboratory Results - last 24 hr 02/26/24 05:23 Blood Type O Negative Antibody Screen Negative OB - PN A/P Assessment and Plan (1) Vaginal delivery: Code(s): O80 - Encounter for full-term uncomplicated delivery Status: Acute Plan day: 2 Plan: routine care and discharge home Comments: - Pelvic rest; take meds as prescribed - ER return precautions: fever, n/v/abd pain, bleeding, HTN Time Spent With Patient Time: Total time spent is greater than 50% in coordination of care (as documented) at patient's floor/unit and/or counseling patient: Review of Systems Constitutional: Constitutional: Denies chills, Denies fever(s) and Denies headache(s) Eyes: Eyes: Denies change in vision ENT: Denies dizziness and Denies headache(s) Cardiovascular: Cardiovascular: Denies chest pain, Denies palpitations and Denies dyspnea Respiratory: Respiratory: Denies cough and Denies dyspnea Gastrointestinal: Gastrointestinal: Denies nausea and Denies vomiting Neurologic: Denies dizziness and Denies headache(s) Endocrine: Endocrine: Denies palpitations Exam Const: General: cooperative, comfortable and no acute distress Orientation/consciousness: patient oriented x3 Resp: Effort & Inspection: normal respiratory effort Auscultation: clear to auscultation bilaterally Cardio: Rate: regular rate GI: Inspection: non-distended GI Palp: No abdominal tenderness and Yes Soft to palpation Auscultation: normal bowel sounds : Other: fundus firm Skin: General skin exam: normal color Neuro: General: patient oriented x3 Extrem: General: normal to inspection Psych: Appearance: grossly normal Affect: normal affect Attitude: cooperative
--- NOTE | 2024-02-27 10:18 | PM.OBDSVD ---
DS: Admitting Diagnosis Discharge Date 02/27/24 Admitting Diagnosis Induction of labor DS: Discharge Diagnosis Discharge Diagnosis (1) Vaginal delivery: Code(s): O80 - Encounter for full-term uncomplicated delivery Status: Acute OB - DS: Summary OB Procedures : Ultrasound OB Procedures Intrapartum: Spontaneous Vag Delivery OB Procedures: : RHo (D) lg Peripartum Data Delivery Method: Natural Vaginal Laceration Description: Vaginal (sulcus inferior, sup labial minora hemostasis obtained with suture and packing at introitus) Episiotomy description: None complications: none 1: Gender: Female Disposition of : home Status at Discharge Functional status at discharge: independent ambulation Overall status at discharge: patient is back to baseline Time Spent with Patient Time attestation: Total time spent providing and/or coordinating discharge services: Exam Const: General: cooperative, comfortable and no acute distress Orientation/consciousness: patient oriented x3 Resp: Effort & Inspection: normal respiratory effort Auscultation: clear to auscultation bilaterally Cardio: Rate: regular rate GI: Inspection: non-distended GI Palp: No abdominal tenderness and Yes Soft to palpation Auscultation: normal bowel sounds : Other: fundus firm Skin: General skin exam: normal color Neuro: General: patient oriented x3 Extrem: General: normal to inspection Psych: Appearance: grossly normal Affect: normal affect Attitude: cooperative DS: Data Data Completed and Pending Labs on day of discharge: Labs from last 24 hours 02/26/24 05:23 Blood Type O Negative Antibody Screen Negative Screen Pending Baby's Blood Type Pending Baby's FLO Pending Doses of RhIg Required Pending Discharge Plan Discharge Attending physician on discharge: Jay De La O Discharging Clinician: Karishma Guerra Anticipated Discharge Date/Time: 02/27/24 11:00 Patient Disposition: Home, Self-Care Activity: pelvic rest Diet: regular Patient Instructions: Vaginal Delivery (DC) Stand Alone Forms: General Discharge Information Follow-up/Referrals: Jay De La O MD [Physician] - Call for Appointment Discharge Medications: New docusate sodium 100 mg Capsule 100 mg PO BID PRN (Reason: Constipation) Qty: 60 0RF ibuprofen 600 mg Tablet 600 mg PO Q6H PRN (Reason: Cramping) Qty: 40 0RF Continued Vitamin Plus Low Iron 27 mg iron- 1 mg tablet 1 tablet PO DAILY Qty: 30 2RF Date of admission: 02/24/24 21:33 Primary Care Provider: Trish Cortés Admitting Provider: Jay De La O Attending physician on admission: Jay De La O Condition: Stable
[2024-02-29 10:21] VITALS: BP 128/87; PULSE 91; RESP 18; TEMP 36.9; O2SAT 99
== END 2024-02-27 14:50 | disposition home or self-care (01) | DRG 807 ==
LOC: ANHLDR 21:37 → ANHOB2 02-26 01:45
PROVIDERS: Admitting Provider Obstetrics & Gynecology; PCP Nurse Practitioner Family; Visit Provider Obstetrics & Gynecology
DX: O71.4 Obstetric high vaginal laceration alone (principal); Z37.0 Single live birth; Z3A.39 39 weeks gestation of pregnancy
CPT/HCPCS: 36415; 80053; 84550; 85014; 85018; 85025; 85461; 86592; 86703; 86850; 86900; 86901; 90384; A9270; G0432; J2590; J2790; J2795; J7120

== ENCOUNTER 2024-12-15 18:19 | Emergency (ER) | payer OTHER, SELFPAY ==
--- OUTSIDE RECORDS SUMMARY | 2024-12-15 18:22 | XMS_ITS | Clinical Summary ---
Author Organization [facility] Address [address] Alyn: Epic Prelude ADT JESSIE OWENS [address] Care Team Providers Care Transmission Repairer Name Role Phone Unavailable Primary Care Provider Unavailabl e Allergies Active Allergy Reactions Criticality Noted Date Comments Acetaminophen Hives High 09/29/2012 Active Problems Problem Noted Date Diagnosed Date Seizure disorder Anxiety Bipolar disorder Encounters Date Type Department Care Team Description 11/30/2024 External Device Data [facility] ABSTRACTION Provider, Abstract 11/30/2024 External Device Data [facility] ABSTRACTION Provider, Abstract 11/19/2024 External Device Data [facility]STRA[facility] Provider, Abstract 11/18/2024 External Device Data [facility]STRA[facility] Provider, Abstract 11/16/2024 External Device Data [facility] Provider, Abstract 11/02/2024 External Device Data [facility] Provider, Abstract 10/12/2024 External Device Data [facility]STRA[facility] Provider, Abstract 10/06/2024 External Device Data [facility] ABSTRACTION Provider, Abstract from Last 3 Months Social History Tobacco Use Types Packs/Day Years Used Date Smoking Tobacco: Never Alcohol Use Standard Drinks/Week Comments No 0 (1 standard drink = 0.6 oz pur e alcohol) Comments Unknown Sex and Gender Information Value Date Recorded Sex Assigned at Not on file 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 Gender Identity Not on file Sexual Orientation Not on file Plan of Treatment Health Maintenance Due Date Last Done Comments HPV VACCINES (1 - 3-dose series) 2014 DTAP/TDAP/TD VACCINES (1 - Tdap) 2018 HEPATITIS B VACCINES (1 of 3 - 19+ 3-dose series) 2018 CERVICAL CANCER SCREENING 02/03/2020 HPV/Cotest (21-29) 02/03/2020 PAP SMEAR 02/03/2020 PAP SMEAR 02/03/2020 INFLUENZA VACCINE (#1) 2024 PNEUMOCOCCAL VACCINE 0-49 YEARS Aged Out No longer eligible based on patient's age to complete this topic Insurance [facility] CORE [id number] [facility] Address: [facility] [address] [place] [address]
--- OUTSIDE RECORDS SUMMARY | 2024-12-15 18:22 | XMS_ITS | CONTINUITY OF CARE DOCUMENT ---
Author Name venessa clifford Address Unknown Organization [facility] Address [address] [place] [address] Phone [phone] Care Team Providers Care Customer Orders Clerk Name Role Phone Foreign SERRANO, Alexis Unavailable INSURANCE PROVIDERS Payer name Policy type / Coverage type [place] red green party ID [facility] [id number] Other [id number]
--- OUTSIDE RECORDS SUMMARY | 2024-12-15 18:24 | XMS_ITS | CONTINUITY OF CARE DOCUMENT ---
Author Name venessa clifford Address Unknown Organization [facility] Address [address] [place] [address] Phone [phone] Care Team Providers Care Strategy Execution Consultant Name Role Phone Foreign SERRANO, Alexis Unavailable INSURANCE PROVIDERS Payer name Policy type / Coverage type [place] red alliance party ID [facility] [id number] Other [id number]
[2024-12-15 18:40] VITALS: BP 115/85; PULSE 96; RESP 20; TEMP 36.3; O2SAT 96
--- NOTE | 2024-12-15 18:55 | ED.URI ---
HPI - URI/Sore Throat General Chief Complaint: Upper Respiratory Infection Stated Complaint: Sore Throat Time Seen by Provider: 12/15/24 19:04 Source: patient, RN notes reviewed and old records reviewed Mode of arrival: ambulatory Limitations: no limitations History of Present Illness HPI Narrative: 24-year-old female presents to the [facility] with complaints of sore throat, cough, feeling feverish and bilateral ear discomfort for 2 days. Has taken ibuprofen. No other treatment prior to arrival Onset (ago): day(s) (2) Treatments prior to arrival: ibuprofen Related Data Home Medications ?Medication ?Instructions ?Recorded ?Confirmed ?Last Taken ?Type No Home Medications 12/15/24 12/15/24 Unknown History Allergies Allergy/AdvReac Type Severity Reaction Status Date / Time acetaminophen Allergy Intermediate Hives Verified 12/15/24 18:59 Latex, Natural Rubber Allergy Mild Rash Verified 12/15/24 18:59 Review of Systems Review of Systems: All systems reviewed & are unremarkable except as noted in HPI and below Constitutional: Constitutional: Reports no additional constitutional complaints ENT: Reports as per HPI, Reports otalgia and Reports sore throat Cardiovascular: Cardiovascular: Reports no additional cardiovascular complaints, Denies chest pain and Denies dyspnea Respiratory: Respiratory: Reports as per HPI, Denies chest congestion, Reports cough and Denies dyspnea Musculoskeletal: Musculoskeletal: Reports no additional musculoskeletal complaints Integumentary/Breasts: Skin/Breast: Reports system reviewed and no additional complaints, except as docu PMFSH Past Medical History Medical History No pertinent past medical history Surgical History Surgical History [place] teeth removed Family History Family History Mother No problems noted. Father No problems noted. Other Alcoholism Depression Diabetes mellitus Heart disease History of cancer Hypertension Thyroid disorder Social History Social History Smoking status: Former smoker Alcohol intake: never Substance use: never Do You Feel Safe in your Home?: Yes Lack of Transportation: No Lack of Food: Sometimes True Current Housing: I Have Housing Concerned About Future Housing: No Difficulty Paying Gas/Electric Bills: No Difficulty Paying for Meds: No Currently Unemployed: No Education: High School Diploma/GED Difficulty w/ Childcare or Family Care: No Living arrangements: with family Spiritual care concerns: No Comments At the time of my signature, I reviewed and agree with the nursing past medical, surgical, social, and family history. There is no relevant family history pertinent to the patient complaint. Exam Const: General: cooperative, healthy appearing, comfortable, no acute distress, well developed, alert and well nourished Nutritional Appearance: well nourished Orientation/consciousness: patient oriented x3 Limitations: no limitations HENMT: Head: normal to inspection Ears: hearing grossly normal bilaterally, external ears normal and TM abnormal wth effusion serous bilateral Face/Nose/Sinus: Normal external nose present and Normal nasal mucous membranes and turbinates present Mouth: Yes Normal oral and palatal mucosa present, Yes lip normal, Yes tongue normal and Yes moist mucous membranes Throat: posterior oropharynx normal, uvula midline, postnasal drainage and no uvular edema Eyes: General: appearance normal, both eyes and all related structures Alignment and Position: alignment normal Neck: Neck: normal visual inspection, full ROM, no lymphadenopathy and no meningeal signs Chest: Chest palpation & inspection: normal inspection of the chest Resp: Effort & Inspection: normal respiratory effort and able to speak in complete sentences Auscultation: clear to auscultation bilaterally, no crackles, no rales, no rhonchi and no wheezes Cardio: Rate: regular rate Skin: General skin exam: normal color and no rashes or lesions noted Neuro: General: patient oriented x3, gait normal, moves all extremities and no meningeal signs Cognition (Neuro): normal cognition Speech: normal speech Gait exam (Neuro): Normal gait present Extrem: General: normal to inspection, full ROM, capillary refill normal and normal gait Psych: Appearance: grossly normal and well kempt Mental Status: mental status grossly normal Speech and movement: Normal speech and movement present and Clear speech present Affect: normal affect Attitude: cooperative Course Course Level of Care: Express Care Visit Vital Signs Vital signs: Vital Signs Temperature 97.3 F L 12/15/24 18:40 Pulse Rate 96 12/15/24 18:40 Respiratory Rate 20 12/15/24 18:40 Blood Pressure 115/85 12/15/24 18:40 Pulse Oximetry 96 12/15/24 18:40 Oxygen Delivery Room Air 12/15/24 18:40 Temperature 97.3 F L 12/15/24 18:40 Pulse Rate 96 12/15/24 18:40 Respiratory Rate 20 12/15/24 18:40 Blood Pressure 115/85 12/15/24 18:40 Pulse Oximetry 96 12/15/24 18:40 Oxygen Delivery Room Air 12/15/24 18:40 Reviewed MDM - URI/Sore Throat MDM Narrative Medical decision making narrative: Patient sitting comfortably in exam room. Nontoxic, vitals stable. Patient in no acute distress patient presents with 2 day history of URI symptoms. Flu COVID strep negative in clinic. No acute findings noted on exam. Patient appropriate for outpatient treatment with close follow-up Discharge instructions reviewed with patient, as well as provided in writing per nursing staff. The instructions also include specific and strict return/GO TO THE ER as well as f/u information. All questions have been answered, and the patient deny any further questions with discharge and discharge plan. Some parts of this dictation were generated by voice recognition software and may contain typographical and/or grammatical inaccuracies. Differential Diagnosis Differential diagnosis: Likely upper respiratory infection, otitis media, sinusitis, viral infection, bronchitis, influenza and pharyngitis Lab Data Labs: Lab Results 12/15/24 Range/Units 19:20 POC Influenza A Ag Negative (Negative) POC Influenza B Ag Negative (Negative) POC SARS CoV-2 Ag Negative (Negative) POC Grp A Strep Screen Negative (Negative) Reviewed Critical Care Time Critical Care Time Critical Care Time: No Discharge Plan Discharge Clinical Impression: Upper respiratory infection Patient Disposition: Home, Self-Care Condition: Stable Instructions: Upper Respiratory Infection (ED), Postnasal Drip (DC) Additional Instructions: Your rapid strep swab was negative today at [facility]. A throat culture will be sent to the laboratory for further testing. If the test is positive, you will receive a phone call within 48 hours and an appropriate antibiotic will be initiated at that time. Your rapid COVID test were negative Your rapid flu test was negative Your symptoms are likely due to a viral illness, which is not treated with antibiotics. Typically viral infections last 7-10 days, can linger for couple of weeks. It is very important to treat your symptoms. Drink plenty of water, Gatorade, Pedialyte, ice pops or Jell-O. -Alternate Tylenol and Motrin per package directions for fever or pain. You can alternate every 4 hours -Antihistamine medication such as Zyrtec/Claritin/Roopa during the day can help improve symptoms. -doing daily nasal irrigations can help relieve pressure your sinuses. Things like a Neti pot -Use Flonase twice a day for 5 days then daily to help reduce the inflammation and dry up your sinuses. -You can also use Mucinex. Be sure to drink plenty of water with this medication at least 8 ounces with every dose and it is important to drink 8 to 10 glasses of water per day. Water is a natural decongestant -Eat and drink things that are easy to swallow, like tea or soup, or popsicles. -Oral rinses such as: Salt water gargles and/or may use topical anesthetic (eg. Chloraseptic spray) or lozenges to relieve dryness or throat pain). -Frequent hand washing or hand gender studies professor is one of the best ways to prevent spread of infection. -Using a vaporizer or humidifier at night will also help thin secretions and help with coughing up phlegm. -Follow up with primary care provider in 7-10 days if condition is not improving - For new or worsening symptoms go directly to the nearest ER Patient Language: Urdu Prescriptions: No Action No Home Medications Follow-up/Referrals: Trish Cortés NP [Primary Care Provider] - 2 Weeks ([facility] follow-up) Stand Alone Forms: Work/School Release IP Time of Disposition: 19:31
[2024-12-15 19:22] LABS: EDCOVIDSCREEN Negative (Negative); EDINFLUASCREEN Negative (Negative); EDINFLUBSCREEN Negative (Negative); EDSTREPNEGPOS1 Negative (Negative)
== END 2024-12-15 19:53 | disposition home or self-care (01) ==
PROVIDERS: Emergency Provider Nurse Practitioner; PCP Nurse Practitioner Family
DX: J06.9 Acute upper respiratory infection, unspecified (principal); Z20.822 Contact with and (suspected) exposure to COVID-19; Z87.891 Personal history of nicotine dependence
CPT/HCPCS: 87081; 87426; 87804; 87880; 99213; G0463

== ENCOUNTER 2025-01-01 17:10 | Emergency (ER) | payer OTHER, SELFPAY ==
--- NOTE | ~2025-01-01 | CT_ITS ---
EXAMINATION: CT brain wo con DATE: 01/01/2025 18:22 INDICATION: headache . TECHNIQUE: Computed tomography (CT) of the head was performed without intravenous contrast. The mA wa s adjusted according to patient size. Iterative reconstruction technique was employed. The dose-lengt h product was 681.00 mGy-cm. COMPARISON: None. FINDINGS: No acute intracranial hemorrhage or extra-axial fluid collection. No hydrocephalus, mass, or herniation. No acute ischemic infarct. Unremarkable dural venous sinus attenuation. No acute osseous abnormality. Aerated secretions in the right maxillary sinus and right middle ethmoid sinus. Bilateral maxillary, sphenoid, and ethmoid mucosal thickening, the remaining aerated spaces are clear. IMPRESSION: No acute intracranial process. Right maxillary and ethmoid sinus findings may reflect acute sinusitis in the appropriate clinical co ntext. Reviewed, dictated and finalized at location K. IMPRESSION: No acute intracranial process. Right maxillary and ethmoid sinus findings may reflect acute sinusitis in the a ppropriate clinical context.
--- OUTSIDE RECORDS SUMMARY | 2025-01-01 17:12 | XMS_ITS | Clinical Summary ---
Author Organization [facility] Address [address] 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
--- OUTSIDE RECORDS SUMMARY | 2025-01-01 17:12 | XMS_ITS | CONTINUITY OF CARE DOCUMENT ---
Author Name venessa clifford Address Unknown Organization [facility] Address [address] [place] [address] Phone [phone] Care Team Providers Care Hvac Project Manager Name Role Phone Foreign SERRANO, Alexis Unavailable INSURANCE PROVIDERS Payer name Policy type / Coverage type [place] red democrat ID [facility] [id number] Other [id number]
[2025-01-01 17:23] VITALS: BP 136/88; PULSE 80; RESP 16; TEMP 36.4; O2SAT 97
[2025-01-01 17:34] VITALS: BP 123/88; PULSE 77; RESP 20; TEMP 36.6; O2SAT 98
--- NOTE | 2025-01-01 18:09 | ED_ITS ---
HPI - General Adult General Chief complaint: Unspecified Stated complaint: headache, blood in the stool Time Seen by Provider: 01/01/25 17:32 Source: patient Mode of arrival: ambulatory Limitations: no limitations History of Present Illness HPI narrative: This is a 24-year-old female that presents to the emergency department with multiple complaints. Reports she has been having headaches the last couple of weeks. Does endorse she has had an upper respiratory infection. Has been struggling with headaches since having her child. She also reports she has had bright red blood per rectum. Does report history of hemorrhoids and constipation. Denies fever, abdominal pain. Related Data Home Medications ?Medication ?Instructions ?Recorded ?Confirmed ?Last Taken ?Type No Home Medications 12/15/24 12/15/24 Unknown History Allergies Allergy/AdvReac Type Severity Reaction Status Date / Time acetaminophen Allergy Intermediate Hives Verified 12/15/24 18:59 Latex, Natural Rubber Allergy Mild Rash Verified 12/15/24 18:59 Review of Systems 2 Review of Systems: CONSTITUTIONAL: Denies fever ENT: Reports congestion GASTROINTESTINAL: Denies abdominal pain, nausea, vomiting, or diarrhea. All systems reviewed & are unremarkable except as noted in HPI and below PMFSH Past Medical History Medical History No pertinent past medical history Surgical History Surgical History [place] teeth removed Family History Family History Mother No problems noted. Father No problems noted. Other Alcoholism Depression Diabetes mellitus Heart disease History of cancer Hypertension Thyroid disorder Social History Social History Smoking status: Former smoker Alcohol intake: never Substance use: never Do You Feel Safe in your Home?: Yes Lack of Transportation: No Lack of Food: Sometimes True Current Housing: I Have Housing Concerned About Future Housing: No Difficulty Paying Gas/Electric Bills: No Difficulty Paying for Meds: No Currently Unemployed: No Education: High School Diploma/GED Difficulty w/ Childcare or Family Care: No Living arrangements: with family Spiritual care concerns: No Exam 2 Narrative: GENERAL: Well-appearing, well-nourished, and in no acute distress. HEAD: Normocephalic, atraumatic. EYES: PERRLA and EOMI. ENT: Nares clear, no rhinorrhea or epistaxis. Mucous membranes moist. Oropharynx without tonsillar hypertrophy exudate or other lesions. Bilateral TMs pearly mariscal non-bulging NECK: Supple. No adenopathy or masses. CHEST: Clear to auscultation. No respiratory distress. No wheezes rales or rhonchi HEART: Regular rate and rhythm. No murmur heard. Normal peripheral pulses. ABDOMEN: Soft, nontender, nondistended, normal active bowel sounds. EXTREMITIES: Normal range of motion. No edema. SKIN: Warm, dry, no rash. NEURO: No focal deficits. Alert and oriented x3. PSYCH: Normal mood and affect RECTAL: External hemorrhoid present, nonthrombosed. No active bleeding. Hemoccult negative Course Course Emergency Course: Patient updated on workup and agrees with plan of care Vital Signs Vital signs: Vital Signs Temperature 97.6 F 01/01/25 17:23 Pulse Rate 80 01/01/25 17:23 Respiratory Rate 16 01/01/25 17:23 Blood Pressure 136/88 01/01/25 17:23 Pulse Oximetry 97 01/01/25 17:23 Temperature 97.9 F 01/01/25 17:34 Pulse Rate 77 01/01/25 17:34 Respiratory Rate 20 01/01/25 17:34 Blood Pressure 123/88 01/01/25 17:34 Pulse Oximetry 98 01/01/25 17:34 Oxygen Delivery Room Air 01/01/25 17:34 Medical Decision Making MDM Narrative Medical decision making narrative: Patient presents to the emergency department with multiple complaints. Reporting bright red blood per rectum, constipation, history of hemorrhoids. Also endorsing cold symptoms, headaches. She is afebrile and nontoxic appearing. She is neurologically intact. Her vitals are stable. Cbc without leukocytosis. Hemoglobin appears stable. Patient is Hemoccult negative. Metabolic panel without concerning findings. She does have a hemorrhoid, could be source of bleeding. Patient updated on workup and agrees with plan of care. Instructed to have further follow-up with primary provider and Gastroenterology. She was given warnings to return to the ER Vital Signs Vital Signs: Vital Signs Temperature 97.6 F 01/01/25 17:23 Pulse Rate 80 01/01/25 17:23 Respiratory Rate 16 01/01/25 17:23 Blood Pressure 136/88 01/01/25 17:23 Pulse Oximetry 97 01/01/25 17:23 Temperature 97.9 F 01/01/25 17:34 Pulse Rate 77 01/01/25 17:34 Respiratory Rate 20 01/01/25 17:34 Blood Pressure 123/88 01/01/25 17:34 Pulse Oximetry 98 01/01/25 17:34 Oxygen Delivery Room Air 01/01/25 17:34 Lab Data Lab results reviewed: Yes I reviewed the patient's lab results. 01/01/25 18:13 01/01/25 18:13 Labs: Lab Results 01/01/25 Range/Units 18:13 WBC 5.3 (4.5-10.0) K/mm3 RBC 4.12 L (4.2-5.4) M/mm3 Hgb 11.9 L (12.0-15.0) g/dL Hct 36.2 L (37.0-47.0) % MCV 87.9 (80-100) fl MCH 28.9 (26-34) pg MCHC 32.9 (32-36) g/dl RDW 12.3 (11.5-14.5) % Plt Count 165 (150-375) k/mm3 MPV 11.2 H (7.4-10.4) fl Immature Gran % (Auto) 0.2 (0-0.5) % Neut % (Auto) 51.7 (45.5-73.1) % Lymph % (Auto) 36.4 (18.3-44.2) % [place] % (Auto) 7.9 (2.6-8.5) % Eos % (Auto) 3.0 (0-4.4) % Baso % (Auto) 0.8 (0.2-1.2) % Lymph # (Auto) 1.94 (0.9-3.2) K/mm3 [place] # (Auto) 0.4 (0.1-0.6) K/mm3 Eos # (Auto) 0.2 (0-0.3) K/mm3 Baso # (Auto) 0.0 (0.0-0.1) K/mm3 Abs Immat Gran (auto) 0.01 (0.00-0.031) K/mm3 Absolute Neuts (auto) 2.8 (1.3-6.7) K/mm3 Absolute Nucleated RBC 0.000 (0.0-0.012) K/mm3 Nucleated RBC % 0.0 (0.0-0.2) % PT 12.8 (11.1-14.7) Seconds INR 0.9 APTT 27.6 (22.3-36.8) Seconds Sodium 140 (137-145) mmol/L Potassium 3.9 (3.4-5.0) mmol/L Chloride 108 H (98-107) mmol/L Carbon Dioxide 23 (22-30) mmol/L Anion Gap 9 (4-12) mmol/L BUN 14 D (7-17) mg/dL Creatinine 0.51 L (0.7-1.0) mg/dL Estim Creat Clear Calc 171 ml/min Estimated GFR > 60 (59 - ) Glucose 85 (65-110) mg/dL Calcium 8.3 L (8.4-10.2) mg/dL Total Bilirubin 0.6 (0.2-1.3) mg/dL AST 24 (14-36) U/L ALT 13 (6-35) U/L Alkaline Phosphatase 117 (38-126) U/L Total Protein 7.0 (6.3-8.2) g/dL Albumin 4.1 (3.5-5.1) g/dL Imaging Data Radiologist's impression: ITS Impressions Head CT 01/01/25 18:27 IMPRESSION: No acute intracranial process. Right maxillary and ethmoid sinus findings may reflect acute sinusitis in the appropriate clinical context. Critical Care Time Critical Care Time Critical Care Time: No Discharge Plan Discharge Clinical Impression: Rectal bleeding Hemorrhoid Qualifiers: Hemorrhoid type: unspecified Qualified Code(s): K64.9 - Unspecified hemorrhoids Acute sinusitis Qualifiers: Sinusitis location: maxillary Recurrence: not specified as recurrent Qualified Code(s): J01.00 - Acute maxillary sinusitis, unspecified Patient Disposition: Home Condition: Stable Instructions: Hemorrhoids (ED), Rectal Bleeding (ED), Sinusitis (ED) Additional Instructions: Return to the ER if you experience fever, abdominal pain with nausea and vomiting, you are unable to keep down liquids or solids, or any other symptoms that are concerning to you Remain well hydrated. Increase fresh fruit and vegetables in your diet. Take stool softener (Colace) daily. Tylenol or Ibuprofen as needed for pain. Take Zyrtec and use Flonase daily Follow up with your primary care doctor and gastroenterology Patient Language: Bulgarian Prescriptions: No Action No Home Medications Follow-up/Referrals: Trish Cortés NP [Primary Care Provider] - Meño Ortega MD [Physician] -
--- OUTSIDE RECORDS SUMMARY | 2025-01-01 18:16 | XMS_ITS | CONTINUITY OF CARE DOCUMENT ---
Author Name venessa clifford Address Unknown Organization [facility] Address [address] [address] [place] [address] Phone [phone] Care Team Providers Care Search Optimization Analyst Name Role Phone Foreign SERRANO, Alexis Unavailable INSURANCE PROVIDERS Payer name Policy type / Coverage type [place] red green party ID [facility] [id number] Other [id number]
--- OUTSIDE RECORDS SUMMARY | 2025-01-01 18:16 | XMS_ITS | Clinical Summary ---
Author Organization [facility] Address [address] 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
[2025-01-01 18:20] LABS: Basophils Percent Auto 0.8 % (0.2-1.2); Eosinophils Absolute Auto 0.2 K/mm3 (0-0.3); Hematocrit 36.2 % (37.0-47.0); Hemoglobin 11.9 g/dL (12.0-15.0); Immature Granulocyte Absolute 0.01 K/mm3 (0.00-0.031); Immature Granulocyte Percent A 0.2 % (0-0.5); Lymphocytes Absolute Auto 1.94 K/mm3 (0.9-3.2); Lymphocytes Percent Auto 36.4 % (18.3-44.2); Mean Corpuscular HGB Conc 32.9 g/dl (32-36); Mean Corpuscular Hemoglobin 28.9 pg (26-34); Mean Corpuscular Volume 87.9 fl (80-100); Mean Platelet Volume 11.2 fl (7.4-10.4); Monocytes Absolute Auto 0.4 K/mm3 (0.1-0.6); Monocytes Percent Auto 7.9 % (2.6-8.5); Neutrophils Absolute Auto 2.8 K/mm3 (1.3-6.7); Neutrophils Percent Auto 51.7 % (45.5-73.1); Platelet Count Result 165 k/mm3 (150-375); Red Blood Count 4.12 M/mm3 (4.2-5.4); Red Cell Distribution Width 12.3 % (11.5-14.5); White Blood Count 5.3 K/mm3 (4.5-10.0)
[2025-01-01 18:32] LABS: INR 0.9; Prothrombin Time 12.8 Seconds (11.1-14.7)
[2025-01-01 18:33] LABS: Partial Thromboplastin Time 27.6 Seconds (22.3-36.8)
[2025-01-01 18:35] LABS: Alanine Aminotransferase 13 U/L (6-35); Albumin Level 4.1 g/dL (3.5-5.1); Alkaline Phosphatase 117 U/L (38-126); Anion Gap 9 mmol/L (4-12); Aspartate Amino Transferase 24 U/L (14-36); Bilirubin,Total 0.6 mg/dL (0.2-1.3); Blood Urea Nitrogen 14 mg/dL (7-17); Calcium 8.3 mg/dL (8.4-10.2); Carbon Dioxide 23 mmol/L (22-30); Chloride 108 mmol/L (98-107); Estimated CRCL calculation 171 ml/min; Estimated Glomerular Filt Rate > 60; Glucose 85 mg/dL (65-110); Potassium 3.9 mmol/L (3.4-5.0); Sodium 140 mmol/L (137-145)
[2025-01-01 19:17] VITALS: BP 123/88; PULSE 80; RESP 16; O2SAT 100
== END 2025-01-01 19:19 | disposition home or self-care (01) ==
PROVIDERS: Emergency Provider Physician Assistant; PCP Nurse Practitioner Family
DX: J01.00 Acute maxillary sinusitis, unspecified (principal); K64.9 Unspecified hemorrhoids; K62.5 Hemorrhage of anus and rectum; Z87.891 Personal history of nicotine dependence
CPT/HCPCS: 36415; 70450; 80053; 85025; 85610; 85730; 99284

== ENCOUNTER 2025-05-23 22:24 | Emergency (ER) | payer MEDICAID, SELFPAY ==
[2025-05-23] VITALS (9 sets, daily range): BP systolic 119–140; BP diastolic 79–95; PULSE 86–94; RESP 14–18; TEMP 37; O2SAT 95–100
--- OUTSIDE RECORDS SUMMARY | 2025-05-23 22:26 | XMS_ITS | Clinical Summary ---
Author Organization [facility] Address [address] Attn: Epic Prelude ADT JESSIE OWENS [address] Care Team Providers Care Vp Of Customer Experience Strategy Name Role Phone Unavailable Primary Care Provider Unavailabl e Allergies Active Allergy Reactions Criticality Noted Date Comments Acetaminophen Hives High 09/29/2012 Active Problems Problem Noted Date Diagnosed Date Seizure disorder Anxiety Bipolar disorder Social History Tobacco Use Types Packs/Day Years Used Date Smoking Tobacco: Never Alcohol Use Standard Drinks/Week Comments No 0 (1 standard drink = 0.6 oz pur e alcohol) Comments Unknown Sex and Gender Information Value Date Recorded Sex Assigned at Not on file 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 [address] [place] [address]
--- NOTE | 2025-05-23 22:55 | ED_ITS ---
HPI - Skin/Abscess/Foreign Bdy General Chief complaint: Skin/Abscess/Foreign Body Stated complaint: Rash Time Seen by Provider: 05/23/25 22:28 Source: patient Mode of arrival: ambulatory Limitations: no limitations History of Present Illness HPI narrative: This is a 25 year old female that presents to the ER for itchy rash. Reports she took Mifepristone and Misoprostol yesterday to induce an . She developed a rash that is itchy in her upper arms and groin. She took Benadryl earlier tonight. Related Data Home Medications ?Medication ?Instructions ?Recorded ?Confirmed ?Last Taken ?Type No Home Medications 12/15/24 01/12/25 U nknown History Allergies Allergy/AdvReac Type Severity Reaction Status Date / Time acetaminophen Allergy Intermediate Hives Verified 05/23/25 22:24 Latex, Natural Rubber Allergy Mild Rash Verified 05/23/25 22:24 Review of Systems 2 Review of Systems: All systems reviewed & are unremarkable except as noted in HPI and below PMFSH Past Medical History Medical History No pertinent past medical history Surgical History Surgical History [place] teeth removed Family History Family History Mother No problems noted. Father No problems noted. Other Alcoholism Depression Diabetes mellitus Heart disease History of cancer Hypertension Thyroid disorder Social History Social History Smoking status: Former smoker Alcohol intake: never Substance use: never Do You Feel Safe in your Home?: Yes Lack of Transportation: No Lack of Food: Sometimes True Current Housing: I Have Housing Concerned About Future Housing: No Difficulty Paying Gas/Electric Bills: No Difficulty Paying for Meds: No Currently Unemployed: No Education: High School Diploma/GED Difficulty w/ Childcare or Family Care: No Living arrangements: with family Spiritual care concerns: No Exam 2 Narrative: GENERAL: Well-appearing, well-nourished, and in no acute distress. HEAD: Normocephalic, atraumatic. EYES: EOMI. ENT: Nares clear, no rhinorrhea or epistaxis. Mucous membranes moist. Oropharynx without tonsillar hypertrophy exudate or other lesions. NECK: Supple. No adenopathy or masses. CHEST: No respiratory distress. HEART: Regular rate EXTREMITIES: Normal range of motion. No edema. SKIN: Warm, dry. Macular rash present on the axilla and left groin NEURO: No focal deficits. Alert and oriented x3. PSYCH: Normal mood and affect Course Vital Signs Vital signs: Vital Signs Temperature 98.6 F 05/23/25 22:32 Pulse Rate 94 05/23/25 22:32 Respiratory Rate 14 05/23/25 22:32 Blood Pressure 140/95 H 05/23/25 22:32 Pulse Oximetry 99 05/23/25 22:32 Oxygen Delivery Room Air 05/23/25 22:32 Temperature 98.6 F 05/23/25 22:32 Pulse Rate 94 05/23/25 22:32 Respiratory Rate 14 05/23/25 22:32 Blood Pressure 140/95 H 05/23/25 22:32 Pulse Oximetry 99 05/23/25 22:32 Oxygen Delivery Room Air 05/23/25 22:32 MDM - Skin/Abscess/Foreign Bdy MDM Narrative Medical decision making narrative: Patient presents the emergency department for possible allergic reaction to medication. Rash noted to the upper arms and left groin after taking mifepristone and misoprostol for an . CBC and metabolic panel without concerning findings. Given dose of solumedrol and pepcid in the ER. Will be continued on oral antihistamines. She was given warnings to return to the ER Differential Diagnosis Differential diagnosis: Likely urticaria, allergic reaction to drug, cellulitis, eczema, insect bites and contact dermatitis Lab Data 05/23/25 23:12 05/23/25 23:12 Labs: Lab Results 05/23/25 Range/Units 23:12 WBC 7.0 (4.5-10.0) K/mm3 RBC 4.21 (4.2-5.4) M/mm3 Hgb 12.1 (12.0-15.0) g/dL Hct 36.7 L (37.0-47.0) % MCV 87.2 (80-100) fl MCH 28.7 (26-34) pg MCHC 33.0 (32-36) g/dl RDW 12.4 (11.5-14.5) % Plt Count 173 (150-375) k/mm3 MPV 11.0 H (7.4-10.4) fl Immature Gran % (Auto) 0.3 (0-0.5) % Neut % (Auto) 66.8 (45.5-73.1) % Lymph % (Auto) 23.1 (18.3-44.2) % [place] % (Auto) 7.3 (2.6-8.5) % Eos % (Auto) 2.1 (0-4.4) % Baso % (Auto) 0.4 (0.2-1.2) % Lymph # (Auto) 1.62 (0.9-3.2) K/mm3 [place] # (Auto) 0.5 (0.1-0.6) K/mm3 Eos # (Auto) 0.2 (0-0.3) K/mm3 Baso # (Auto) 0.0 (0.0-0.1) K/mm3 Abs Immat Gran (auto) 0.02 (0.00-0.031) K/mm3 Absolute Neuts (auto) 4.7 (1.3-6.7) K/mm3 Absolute Nucleated RBC 0.000 (0.0-0.012) K/mm3 Nucleated RBC % 0.0 (0.0-0.2) % Sodium 136 L (137-145) mmol/L Potassium 3.9 (3.4-5.0) mmol/L Chloride 105 (98-107) mmol/L Carbon Dioxide 22 (22-30) mmol/L Anion Gap 9 (4-12) mmol/L BUN 10 (7-17) mg/dL Creatinine 0.49 L (0.7-1.0) mg/dL Estim Creat Clear Calc 173 ml/min Estimated GFR > 60 (59 - ) Glucose 106 (65-110) mg/dL Calcium 9.2 (8.4-10.2) mg/dL Total Bilirubin 0.7 (0.2-1.3) mg/dL AST 21 (14-36) U/L ALT 12 (6-35) U/L Alkaline Phosphatase 85 (38-126) U/L Total Protein 7.2 (6.3-8.2) g/dL Albumin 4.1 (3.5-5.1) g/dL Critical Care Time Critical Care Time Critical Care Time: No Discharge Plan Discharge Clinical Impression: Allergic reaction Qualifiers: Encounter type: initial encounter Qualified Code(s): T78.40XA - Allergy, unspecified, initial encounter Patient Disposition: Home Condition: Improved Instructions: General Allergic Reaction (ED) Additional Instructions: Return to the emergency department if you experience fever, difficulty breathing, trouble swallowing, or any other symptoms that are concerning to you Take a Pepcid and Zyrtec daily. Benadryl as needed Follow-up with primary care doctor Patient Language: Ukrainian Prescriptions: No Action No Home Medications Follow-up/Referrals: Trish Cortés NP [Primary Care Provider, [facility]]
[2025-05-23] MEDS: FAMOTIDINE 20 MG/2 ML VIAL IV PUSH (23:05)
[2025-05-23 23:17] LABS: Hematocrit 36.7 % (37.0-47.0); Hemoglobin 12.1 g/dL (12.0-15.0); Immature Granulocyte Percent A 0.3 % (0-0.5); Lymphocytes Absolute Auto 1.62 K/mm3 (0.9-3.2); Mean Corpuscular HGB Conc 33.0 g/dl (32-36); Mean Corpuscular Hemoglobin 28.7 pg (26-34); Mean Corpuscular Volume 87.2 fl (80-100); Nucleated Red Blood Cells Absolute Auto 0.000 K/mm3 (0.0-0.012); Nucleated Red Blood Cells Perc 0.0 % (0.0-0.2); Platelet Count Result 173 k/mm3 (150-375); Red Blood Count 4.21 M/mm3 (4.2-5.4); White Blood Count 7.0 K/mm3 (4.5-10.0)
[2025-05-23 23:55] LABS: Alanine Aminotransferase 12 U/L (6-35); Albumin Level 4.1 g/dL (3.5-5.1); Alkaline Phosphatase 85 U/L (38-126); Anion Gap 9 mmol/L (4-12); Aspartate Amino Transferase 21 U/L (14-36); Bilirubin,Total 0.7 mg/dL (0.2-1.3); Blood Urea Nitrogen 10 mg/dL (7-17); Calcium 9.2 mg/dL (8.4-10.2); Carbon Dioxide 22 mmol/L (22-30); Chloride 105 mmol/L (98-107); Estimated CRCL calculation 173 ml/min; Estimated Glomerular Filt Rate > 60; Glucose 106 mg/dL (65-110); Potassium 3.9 mmol/L (3.4-5.0); Sodium 136 mmol/L (137-145); Total Protein 7.2 g/dL (6.3-8.2)
--- OUTSIDE RECORDS SUMMARY | 2025-05-24 00:04 | XMS_ITS | Clinical Summary ---
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
== END 2025-05-24 00:16 | disposition home or self-care (01) ==
LOC: ANHED 05-24 00:02
PROVIDERS: Emergency Provider Physician Assistant; PCP Nurse Practitioner Family
DX: T78.40XA Allergy, unspecified, initial encounter (principal); X58.XXXA Exposure to other specified factors, initial encounter; Z87.891 Personal history of nicotine dependence
CPT/HCPCS: 36415; 80053; 85025; 96374; 96375; 99284; J2919

== ENCOUNTER 2025-07-16 20:28 | Emergency (ER) | payer MEDICAID, SELFPAY ==
--- NOTE | ~2025-07-16 | US_ITS ---
Clinical history:Unknown LMP. Vaginal bleeding. Clots. Per patient took filled to months ago. EXAM:Ultrasound OB less than 14 weeks fetus with transvaginal TECHNIQUE:Multiple static grayscale and color Doppler transvaginal and transabdominal images were obtained of the pelvis. Comparisons:None available FINDINGS: Uterus measures 7.8 x 4.2 x 5.1 cm. Endometrium is heterogeneous and thickened and measures 2.1 cm in greatest dimension with peripheral and internal color Doppler flow. Right ovary measures 3.5 x 2.4 x 3.1 cm with follicles and color Doppler flow. Left ovary measures 3.3 x 2.1 x 3.0 cm with follicles and color Doppler flow. IMPRESSION: 1. Endometrium is heterogeneous and thickened measuring 2.1 cm with vascular flow. Differential includes but is not limited to retained products of conception. Correlate clinically. Follow-up is recommended. Reviewed, dictated and finalized at location Q. T RANCHER IMPRESSION: 1. Endometrium is heterogeneous and thickened measuring 2.1 cm with vascular fl ow. Differential includes but is not limited to retained products of conception . Correlate clinically. Follow-up is recommended.
[2025-07-16 20:31] VITALS: BP 157/116; PULSE 102; RESP 20; TEMP 36.5; O2SAT 99
[2025-07-17 00:37] LABS: Hematocrit 36.4 % (37.0-47.0); Hemoglobin 12.1 g/dL (12.0-15.0); Immature Granulocyte Percent A 0.3 % (0-0.5); Lymphocytes Absolute Auto 2.38 K/mm3 (0.9-3.2); Mean Corpuscular HGB Conc 33.2 g/dl (32-36); Mean Corpuscular Hemoglobin 29.1 pg (26-34); Mean Corpuscular Volume 87.5 fl (80-100); Nucleated Red Blood Cells Absolute Auto 0.000 K/mm3 (0.0-0.012); Nucleated Red Blood Cells Perc 0.0 % (0.0-0.2); Platelet Count Result 192 k/mm3 (150-375); Red Blood Count 4.16 M/mm3 (4.2-5.4); White Blood Count 7.4 K/mm3 (4.5-10.0)
[2025-07-17 00:43] LABS: Add Urine Microscopic? YES; Appearance Urine Cloudy (Clear); Glucose Urine UA Negative (Negative); Leukocyte Esterase Ur Trace LEU/UL (Negative); Nitrate Urine Negative (Negative); Non Pathogenic Casts 0-2; Specific Grav Ur 1.022 (1.001-1.035)
[2025-07-17 00:45] LABS: Alanine Aminotransferase 11 U/L (6-35); Albumin Level 4.2 g/dL (3.5-5.1); Alkaline Phosphatase 98 U/L (38-126); Anion Gap 7 mmol/L (4-12); Aspartate Amino Transferase 26 U/L (14-36); Bilirubin,Total 0.6 mg/dL (0.2-1.3); Blood Urea Nitrogen 14 mg/dL (7-17); Calcium 8.8 mg/dL (8.4-10.2); Carbon Dioxide 27 mmol/L (22-30); Chloride 106 mmol/L (98-107); Estimated CRCL calculation 160 ml/min; Estimated Glomerular Filt Rate > 60; Glucose 97 mg/dL (65-110); Potassium 3.7 mmol/L (3.4-5.0); Sodium 140 mmol/L (137-145); Total Protein 7.3 g/dL (6.3-8.2)
[2025-07-17 00:53] LABS: INR 1.0; Prothrombin Time 13.4 Seconds (11.1-14.7)
[2025-07-17 00:54] LABS: Partial Thromboplastin Time 29.1 Seconds (22.3-36.8)
[2025-07-17 01:02] LABS: Beta HCG Quantitative 5.50 mIU/ML
[2025-07-17 01:20] VITALS: BP 123/89; PULSE 72; RESP 17; TEMP 36.6; O2SAT 99
[2025-07-17] MEDS: SODIUM CHLORIDE 0.9% IV 1,000 ML 999 ML IV CONT (01:31)
--- NOTE | 2025-07-17 02:04 | ED_ITS ---
HPI - General Chief complaint: Vaginal Bleeding Stated complaint: HEAVY VAG BLEEDING AFTER PREG TERMINATION 05/21/25 Time Seen by Provider: 07/16/25 21:09 History of Present Illness HPI Narrative: Patient is a 25-year-old female who presents to the ER with concerns of heavy lifting. She reports approximately 2 months ago she terminated a via oral method. Patient reports she had heavy bleeding following the medication, but the bleeding increased this past weekend with numerous clots. She endorses intermittent abdominal pain that is generalized followed by passage of a large clot. Patient also endorses bloating. She denies any urinary symptoms, recent fevers, acute back pain, or lightheadedness. Patient reports she does not currently have an OBGYN but she has seen Dr. De La O in the past. Related Data Allergies Allergy/AdvReac Type Severity Reaction Status Date / Time acetaminophen Allergy Intermediate Hives Verified 07/16/25 20:29 Latex, Natural Rubber Allergy Mild Rash Verified 07/16/25 20:29 mifepristone Allergy Rash Verified 07/16/25 20:29 misoprostol Allergy Rash Verified 07/16/25 20:29 Review of Systems 2 Review of Systems: All systems reviewed & are unremarkable except as noted in HPI and below PMFSH Past Medical History Medical History No pertinent past medical history Surgical History Surgical History [place] teeth removed Family History Family History Mother No problems noted. Father No problems noted. Other Alcoholism Depression Diabetes mellitus Heart disease History of cancer Hypertension Thyroid disorder Social History Social History Smoking status: Former smoker Alcohol intake: never Substance use: never Do You Feel Safe in your Home?: Yes Lack of Transportation: No Lack of Food: Sometimes True Current Housing: I Have Housing Concerned About Future Housing: No Difficulty Paying Gas/Electric Bills: No Difficulty Paying for Meds: No Currently Unemployed: No Education: High School Diploma/GED Difficulty w/ Childcare or Family Care: No Living arrangements: with family Spiritual care concerns: No Exam 2 Narrative: GENERAL: Well appearing, well-nourished, non-toxic, in no acute distress. HEAD: Normocephalic, atraumatic. NECK: Supple. No adenopathy, no masses. RESPIRATORY: Airway patent, respirations nonlabored. Clear to auscultation bilaterally, no rales, rhonchi, wheezing. CARDIOVASCULAR: Regular rate and rhythm without murmurs, rubs, or gallops. Peripheral pulses 2+ and equal bilaterally. ABDOMINAL: Soft, mild tenderness with palpation lower quadrants, nondistended, no hepatosplenomegaly. Normoactive BS. MUSCULOSKELETAL: Moves all extremities. Strength/ROM intact without gross deformities. SKIN: Warm, dry, pallor. No rashes. NEURO: A&O X3. Speech clear. Cranial nerves II-XII intact. No ataxic movements. PSYCHIATRIC: Appropriate mood and affect. Normal interaction. Course Vital Signs Vital signs: Vital Signs Temperature 36.5 C 07/16/25 20:31 Pulse Rate 102 H 07/16/25 20:31 Respiratory Rate 20 07/16/25 20:31 Blood Pressure 157/116 H 07/16/25 20:31 Pulse Oximetry 99 07/16/25 20:31 Oxygen Delivery Room Air 07/16/25 20:31 Temperature 36.6 C 07/17/25 01:20 Pulse Rate 72 07/17/25 01:20 Respiratory Rate 17 07/17/25 01:20 Blood Pressure 123/89 07/17/25 01:20 Pulse Oximetry 99 07/17/25 01:20 Oxygen Delivery Room Air 07/16/25 20:31 MDM - OB/Uterine Contractions MDM Narrative Medical decision making narrative: Patient is a 25-year-old female who presents to the ER with concerns of heavy lifting. She reports approximately 2 months ago she terminated a via oral method. Patient reports she had heavy bleeding following the medication, but the bleeding increased this past weekend with numerous clots. She endorses intermittent abdominal pain that is generalized followed by passage of a large clot. Patient also endorses bloating. She denies any urinary symptoms, recent fevers, acute back pain, or lightheadedness. Patient reports she does not currently have an OBGYN but she has seen Dr. De La O in the past. Labs Ordered: CBC, CMP, PTT, INR, UA Imaging Ordered: Ob ultrasound Medications Ordered: 1 L normal saline IV bolus Results: Patient's OB ultrasound indicates of uncertain location, recommend close follow-up. Consider early , failed or nonvisualized ectopic . Endometrial heterogeneity and prominent thickening 2 cm without vascularity could represent retained products of conception in the proper context. Recommend close follow-up. Recommend OBGYN consultation. Bilateral ovaries unremarkable, no torsion. Diagnosis: Dysfunctional bleeding. Consults: 0330-spoke with OBGYN, Dr. De La O, who reports patient's symptoms are more consistent with dysfunctional bleeding rather than retained products of conception. She would like patient to receive TXA 1300 3 times a day x5 days and follow up with her as an outpatient in the clinic. Dr. De La O request patient call her office tomorrow morning to set up a follow-up appointment Differential Diagnosis Differential diagnosis: Likely other (Dysfunctional uterine bleeding, retained products of conception, intrauterine ) Lab Data Attestation: I reviewed the patient's lab results. 07/17/25 00:03 07/17/25 00:03 Labs: Lab Results 07/17/25 Range/Units 00:03 WBC 7.4 (4.5-10.0) K/mm3 RBC 4.16 L (4.2-5.4) M/mm3 Hgb 12.1 (12.0-15.0) g/dL Hct 36.4 L (37.0-47.0) % MCV 87.5 (80-100) fl MCH 29.1 (26-34) pg MCHC 33.2 (32-36) g/dl RDW 12.0 (11.5-14.5) % Plt Count 192 (150-375) k/mm3 MPV 11.8 H (7.4-10.4) fl Immature Gran % (Auto) 0.3 (0-0.5) % Neut % (Auto) 58.9 (45.5-73.1) % Lymph % (Auto) 32.0 (18.3-44.2) % [place] % (Auto) 6.0 (2.6-8.5) % Eos % (Auto) 1.9 (0-4.4) % Baso % (Auto) 0.9 (0.2-1.2) % Lymph # (Auto) 2.38 (0.9-3.2) K/mm3 [place] # (Auto) 0.5 (0.1-0.6) K/mm3 Eos # (Auto) 0.1 (0-0.3) K/mm3 Baso # (Auto) 0.1 (0.0-0.1) K/mm3 Abs Immat Gran (auto) 0.02 (0.00-0.031) K/mm3 Absolute Neuts (auto) 4.4 (1.3-6.7) K/mm3 Absolute Nucleated RBC 0.000 (0.0-0.012) K/mm3 Nucleated RBC % 0.0 (0.0-0.2) % PT 13.4 (11.1-14.7) Seconds INR 1.0 APTT 29.1 (22.3-36.8) Seconds Sodium 140 (137-145) mmol/L Potassium 3.7 (3.4-5.0) mmol/L Chloride 106 (98-107) mmol/L Carbon Dioxide 27 (22-30) mmol/L Anion Gap 7 (4-12) mmol/L BUN 14 (7-17) mg/dL Creatinine 0.55 L (0.7-1.0) mg/dL Estim Creat Clear Calc 160 ml/min Estimated GFR > 60 (59 - ) Glucose 97 (65-110) mg/dL Calcium 8.8 (8.4-10.2) mg/dL Total Bilirubin 0.6 (0.2-1.3) mg/dL AST 26 (14-36) U/L ALT 11 (6-35) U/L Alkaline Phosphatase 98 (38-126) U/L Total Protein 7.3 (6.3-8.2) g/dL Albumin 4.2 (3.5-5.1) g/dL Beta HCG, Quant 5.50 mIU/ML Urine Color Yellow (Yellow) Urine Appearance Cloudy H (Clear) Urine pH 8.0 (5.0-9.0) Ur Specific [place] 1.022 (1.001-1.035) Urine Protein 1+ H (Negative) mg/dL Urine Glucose (UA) Negative (Negative) mg/dL Urine Ketones Trace H (Negative) mg/dL Ur Blood (Man) 3+ H (Negative) Urine Nitrate Negative (Negative) Urine Bilirubin Negative (Negative) Urine Urobilinogen 1.0 (<2.0) mg/dL Leukocyte Esterase Rfl Trace H (Negative) MUMTAZ/UL Urine RBC 11-20 H (0-2) /hpf Urine WBC 0-5 (0-3) /hpf Ur Squamous Epith Cells Occasional (Few) /hpf Urine Bacteria Rare /hpf Urine Casts 0-2 Blood Type O Negative Antibody Screen Negative Screen TNP Baby's Blood Type Not Reportable Baby's FLO Not Reportable Doses of RhIg Required 1 Imaging Data Attestation: I personally reviewed and interpreted this imaging study as follows: Radiologist's impression: Patient's OB ultrasound indicates of uncertain location, recommend close follow-up. Consider early , failed or nonvisualized ectopic . Endometrial heterogeneity and prominent thickening 2 cm without vascularity could represent retained products of conception in the proper context. Recommend close follow-up. Recommend OBGYN consultation. Bilateral ovaries unremarkable, no torsion. Discharge Plan Discharge Clinical Impression: Dysfunctional uterine bleeding, Vaginal bleeding Patient Disposition: Home Condition: Stable Instructions: Antibiotic Form, Abnormal (Dysfunctional) Uterine Bleeding (ED) Additional Instructions: Please return to the ER with any worsening symptoms. Follow-up with OBGYN as soon as possible, please call them tomorrow for a follow-up appointment. Please take TXA 3 times a day for 5 days to help resolve your vaginal bleeding. Remember to drink lots of water. Patient Language: [place] Prescriptions: New tranexamic acid 650 mg tablet 1,300 mg PO TID Qty: 15 0RF Follow-up/Referrals: Trish Cortés NP [Primary Care Provider, Family Practice] Jay De La O MD [Physician, [employer]] Stand Alone Forms: Work/School Release IP Time of Disposition: 03:43
[2025-07-17 04:11] VITALS: BP 132/85; PULSE 71; RESP 18; TEMP 36.9; O2SAT 96
[2025-07-17 04:14] VITALS: BP 132/85; PULSE 71; RESP 18; TEMP 36.9; O2SAT 96
[2025-07-17 04:47] VITALS: BP 121/86; PULSE 73; RESP 18; TEMP 36.7; O2SAT 97
--- NOTE | 2025-07-17 04:47 | PC.NURSE ---
Rhogam shot was given in L thigh.
== END 2025-07-17 04:49 | disposition home or self-care (01) ==
PROVIDERS: Emergency Provider Registered Nurse; PCP Nurse Practitioner Family
DX: N93.8 Other specified abnormal uterine and vaginal bleeding (principal); Z87.891 Personal history of nicotine dependence
CPT/HCPCS: 36415; 76801; 76817; 80053; 81001; 84702; 85025; 85461; 85610; 85730; 86850; 86900; 86901; 90384; 96360; 96372; 99284; J2790; J7030

== ENCOUNTER 2025-08-21 11:22 | Outpatient (CLI) | payer MEDICAID, SELFPAY ==
[2025-08-21 11:46] LABS: Hematocrit 36.5 % (37.0-47.0); Hemoglobin 12.2 g/dL (12.0-15.0); Mean Corpuscular HGB Conc 33.4 g/dl (32-36); Mean Corpuscular Hemoglobin 28.9 pg (26-34); Mean Corpuscular Volume 86.5 fl (80-100); Platelet Count Result 193 k/mm3 (150-375); Red Blood Count 4.22 M/mm3 (4.2-5.4); White Blood Count 6.2 K/mm3 (4.5-10.0)
[2025-08-21 12:28] LABS: Beta HCG Quantitative < 2.39 mIU/ML
[2025-08-21 12:29] LABS: Free T4 Free Thyroxine 1.06 ng/dL (0.78-2.19)
[2025-08-21 12:42] LABS: Thyroid Stimulating Hormone 1.520 uIU/mL (0.465-4.680)
== END 2025-08-21 11:23 | disposition home or self-care (01) ==
LOC: ANHLAB 11:23
PROVIDERS: PCP Nurse Practitioner Family; Visit Provider Nurse Practitioner Family
DX: N93.9 Abnormal uterine and vaginal bleeding, unspecified (principal)
CPT/HCPCS: 36415; 84146; 84439; 84443; 84702; 85027